=== PATIENT | male | born 1950 | race Caucasian/White ===

== ENCOUNTER 2019-10-28 05:34 | Inpatient (IN) ==
--- NOTE | 2019-10-08 15:58 | PAT Medication Instructions ---
Medication Instructions Date of Service October 08, 2019 Home Medications albuterol sulfate 90 mcg/actuation aerosol inhaler 1 puffs INH UD PRN allopurinol 300 mg tablet 300 mg PO QAM artificial tears(andetqx-crwonbug-rrlodut) 0.1 %-0.3 %-0.2 % eye drops 1 drops OP UD PRN losartan 50 mg-hydrochlorothiazide 12.5 mg tablet 1 tab PO QAM naproxen sodium 220 mg capsule 220 mg PO UD PRN colchicine 0.6 mg tablet 0.6 mg PO DAILY PRN loratadine 10 mg tablet 10 mg PO DAILY PRN acetaminophen [Tylenol Extra Strength] 1,000 mg PO Q6H PRN azithromycin 250 mg PO DAILY fluticasone propion-salmeterol [Wixela Inhub] 1 puff INHALATION BID linagliptin [Tradjenta] 5 mg PO QPM Continue as directed azithromycin 250 mg PO DAILY ASK your surgeon for instructions naproxen sodium 220 mg capsule 220 mg PO UD PRN DO NOT take the morning of surgery losartan 50 mg-hydrochlorothiazide 12.5 mg tablet 1 tab PO QAM colchicine 0.6 mg tablet 0.6 mg PO DAILY PRN loratadine 10 mg tablet 10 mg PO DAILY PRN Take morning of surgery With a small sip of water, OTHERWISE NOTHING TO EAT OR DRINK AFTER MIDNIGHT: albuterol sulfate 90 mcg/actuation aerosol inhaler 1 puffs INH UD PRN (if needed) allopurinol 300 mg tablet 300 mg PO QAM artificial tears(lbenmdm-mtiioxcv-nuzdeka) 0.1 %-0.3 %-0.2 % eye drops 1 drops OP UD PRN (if needed) acetaminophen [Tylenol Extra Strength] 1,000 mg PO Q6H PRN (if needed, may be taken up to four hours before surgery) fluticasone propion-salmeterol [Wixela Inhub] 1 puff INHALATION BID Take evening before surgery albuterol sulfate 90 mcg/actuation aerosol inhaler 1 puffs INH UD PRN (if needed) artificial tears(xxysdux-sncugsgs-qbdkbsh) 0.1 %-0.3 %-0.2 % eye drops 1 drops OP UD PRN (if needed) colchicine 0.6 mg tablet 0.6 mg PO DAILY PRN (if needed) loratadine 10 mg tablet 10 mg PO DAILY PRN (if needed) acetaminophen [Tylenol Extra Strength] 1,000 mg PO Q6H PRN (if needed) fluticasone propion-salmeterol [Wixela Inhub] 1 puff INHALATION BID linagliptin [Tradjenta] 5 mg PO QPM Other Notes If you have any questions please call us at [phone] or [phone] or [phone] or [phone]
--- NOTE | 2019-10-09 10:03 | Anesthesiology Consultation ---
Date of Service October 09, 2019 Assessment & Plan (1) Encounter for pre-operative examination: PATIENT HAS CURRENT DENTAL INFECTION, ON AZITHROMYCIN. ROOT CANAL SCHEDULED FOR OCT 16, 2019 -- SURGEON'S OFFICE MADE AWARE. CHECK BSG AM DOS Chart Review Chart Review: Acceptable Risk for Surgery and Patient seen in Pre Admission Testing Teaching & Discussion Instructed NPO after midnight before surgery, except medications with 15 cc of water. Medication instructions provided according to the PAT guidelines. History Surgery Operation Date: 10/28/19 07:30 Proposed Procedures p Robotic Laparoscopic Radical Retropubic Prostatectomy, Possible Open, Possible Pelvic Lymph Node Dissection, Possible Suprapubic Tube Placement - Elijah Hernandez MD Height/Weight Height: 5 ft 10 in Weight: 89.5 kg Allergies Allergy/AdvReac Type Severity Reaction Status Date / Time SEASONAL ALLERGIES Allergy Unknown & RAGWEED Uncoded 10/07/19 15:18 - HAYFEVER Medications Home Medications Medication Instructions Recorded Confirmed Last Taken albuterol sulfate 90 mcg/actuation 1 puffs INH UD PRN 06/05/19 10/07/19 Unknown aerosol inhaler allopurinol 300 mg tablet 300 mg PO QAM 06/05/19 10/07/19 10/07/19 artificial 1 drops OP UD PRN 06/05/19 10/07/19 Unknown tears(yuznggv-pawuyiob-etjqnch) 0.1 %-0.3 %-0.2 % eye drops losartan 50 mg-hydrochlorothiazide 1 tab PO QAM 06/05/19 10/07/19 10/07/19 12.5 mg tablet naproxen sodium 220 mg capsule 220 mg PO UD PRN 06/05/19 10/07/19 Unknown colchicine 0.6 mg tablet 0.6 mg PO DAILY PRN 10/01/19 10/07/19 Unknown loratadine 10 mg tablet 10 mg PO DAILY PRN 10/01/19 10/07/19 Unknown acetaminophen [Tylenol Extra 1,000 mg PO Q6H PRN 10/07/19 10/07/19 Unknown Strength] azithromycin 250 mg PO DAILY 10/07/19 10/07/19 Unknown fluticasone propion-salmeterol 1 puff INHALATION BID 10/07/19 10/07/19 Unknown [Wixela Inhub] linagliptin [Tradjenta] 5 mg PO QPM 10/07/19 10/07/19 Unknown Past Medical History Medical History (Updated 10/09/19 @ 16:43 by Sam Olivas) Asthma Wixela daily, using albuterol once weekly Blind left eye CKD (chronic kidney disease), stage III Diabetes Gout MOST RECENT FLARE UP : 1.5 WK AGO - RESOLVED Hayfever SEASONAL ALLERGIES, RAGWEED Hypertension Prostate cancer Solitary kidney PT UNSURE WHICH SIDE REMAINS Tooth infection CURRENT ABX TX FOR, ROOT CANAL SCHEDULED FOR OCT 16, 2019 -- SURGEON'S OFFICE MADE AWARE. Exercise / Class Metabolic Activity II 4-5 Yardwork/Stairs/Walk up hill (DENIES CP OR SOB WITH 1 FOS) Past Family History Family History Mother , age 80s alzheimers No problems noted. Father , age early 80s CVA No problems noted. Brother , age 65 renal disease No problems noted. Brother No problems noted. Brother Skin cancer Daughter No problems noted. Daughter No problems noted. Son No problems noted. 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 PT REPORTS BENIGN Past Anesthesia History No Hx of Anesthesia Complications and No Family Hx of Anesthesia Complications History of PONV No Hx of PONV and No Hx of Motion Sickness Social History Smoking Status: Never smoker Do You Dip or Chew Tobacco: No Hx Alcohol Use: Yes (social) Alcohol type: wine and hard liquor alcohol intake frequency: a few times a week Hx Substance Use: No substance use type: does not use Review of Systems Pt denies any recent chest pain, shortness of breath, palpitations, cough, fever or URI. +TOOTH PAIN/DENTAL INFECTION, TO HAVE ROOT CANAL PRIOR TO SURGERY. PT ADVISED TO MAKE SURGEON AWARE. Physical Exam Vital Signs BP: 155/90 (pt has significant dental pain; BP was also elevated at PCP visit 10/03; PCP monitoring) P: 73bpm SPO2: 97% RA T: 97.5 F R: 18 ENMT Mouth: + dental restorations (few crowns and implants -- to have root canal before surgery); no loose teeth Thyromental Distance: > or= 3.5 Finger Breadths (4) Mallampati Class: II Neck + short neck; neck extension not limited Respiratory normal respiratory effort Auscultation: lungs clear to auscultation bilaterally Cardiovascular Rate/Rhythm: regular rate and regular rhythm Heart Sounds: no murmur Vessels: no carotid bruit Testing Laboratory Results Urine Color Yellow 10/09/19 Unknown Urine Appearance Clear (Clear) 10/09/19 Unknown Urine pH 6.0 (4.5-7.5) 10/09/19 Unknown Ur Specific [place] 1.008 (1.000-1.030) 10/09/19 Unknown Urine Protein 1+ (Negative) H 10/09/19 Unknown Urine Glucose (UA) Negative (Negative) 10/09/19 Unknown Urine Ketones Negative (Negative) 10/09/19 Unknown Urine Nitrite Negative (Negative) 10/09/19 Unknown Ur Leukocyte Esterase Negative (Negative) 10/09/19 Unknown Urine WBC (Auto) 0 /hpf (0-5) 10/09/19 Unknown Urine RBC (Auto) 0-4 /hpf (0-4) 10/09/19 Unknown U Hyaline Cast (Auto) 1-5 /lpf (0-5) 10/09/19 Unknown U Epithel Cells (Auto) 0-5 /lpf (0-5) 10/09/19 Unknown Urine Bacteria (Auto) Negative (Negative) 10/09/19 Unknown Blood Type O Positive 10/09/19 10:10 Antibody Screen NEGATIVE 10/09/19 10:10 09/29/19 WBC: 6.63 H/H: 15.3/44.6 PLATELETS: 168 SODIUM: 140 POTASSIUM: 3.9 CHLORIDE: 102 CO2: 30 BUN: 21.3 CREATININE: 1.72 GLUCOSE: 164 A1C: 6.8% Electrocardiogram Date: 10/03/19 Findings: + NSR @ (72bpm with first-degree AV block.) Rightward axis. Abnormal QRST angle, consider primary T wave abnormality. No significant change from prior. Chest X-Ray Date: 10/09/19 IMPRESSION: 1. Emphysema with linear areas of basilar atelectasis/scarring 2. 9 mm right midlung zone nodule, likely representing a nipple shadow. This could be confirmed with nipple markers as deemed clinically appropriate. *Patient also had Chest CT 10/09/19 confirming presence of pulmonary nodules. Forwarded to PCP for follow-up. Other Testing 10/09/[address] IMPRESSION: 1. Multiple solid pulmonary nodules measuring up to 9 mm. Follow-up per Fleischner Society 2017 recommendations below. 2. Findings suggest emphysema in the setting of smoking related lung injury.
--- NOTE | 2019-10-09 10:43 | XRay Report ---
XR chest Pre-admission PA/Lat CLINICAL HISTORY: Preoperative chest COMPARISON STUDY: No previous studies for comparison. FINDINGS: The heart is normal in size. The chest has an emphysematous configuration. There are linear basilar opacities, likely representing scar/atelectatic change. There are basilar lung cysts. There is no failure. There is no lobar consolidation.[There is a 9 mm right midlung zone nodule, statistica lly representing a nipple shadow. There is ar 15 mm left upper lung zone opacity which appears calcif ied and likely represents a granuloma or area of rib sclerosis IMPRESSION: 1. Emphysema with linear areas of basilar atelectasis/scarring 2. 9 mm right midlung zone nodule, likely representing a nipple shadow. This could be confirmed with nipple markers as deemed clinically appropriate. ACT 112: Negative or not required by law. Electronically signed by: oTmi Bellamy M.D. 10/09/2019 10:41 AM
[2019-10-09 12:20] LABS: Appearance Urine Clear (Clear); Bacteria Urine Automated Negative (Negative); Bilirubin Urine Negative (Negative); Blood Urine Trace (Negative); Color Urine Yellow; Epithelial Cell Urine Auto 0-5 /lpf (0-5); Glucose Urine UA Negative (Negative); Ketones Urine Negative (Negative); Leukocyte Esterase Urine Negative (Negative); Nitrite Urine Negative (Negative); Protein Urine 1+ (Negative); RBC Urine Automated 0-4 /hpf (0-4); Specific Gravity Urine 1.008 (1.000-1.030); Urobilinogen Urine Negative (Negative); WBC Urine Automated 0 /hpf (0-5)
[2019-10-28] MEDS ORDERED: CEFAZOLIN 3000MG 72.5 ML IV SCH (06:00)
[2019-10-28] MEDS ORDERED: HEPARIN SOD 5,000 UNIT/0.5 ML VIAL SQ SCH (06:00)
[2019-10-28] MEDS ORDERED: LACTATED RINGER'S 1,000 ML IV SCH (06:00)
[2019-10-28] MEDS ORDERED: BUPIVACAINE 0.5 % 5 MG/1 ML MPF 30ML VIAL ONE (07:03)
[2019-10-28] MEDS ORDERED: BELLADONNA/OPIUM SUPP 60 MG SUPP PR ONE (07:04)
[2019-10-28] MEDS ORDERED: fentaNYL citrate 100 MCG/2 ML VIAL ONE (07:04)
[2019-10-28] MEDS ORDERED: PROPOFOL IV EMULSION 10 MG/ML 20 ML VIAL IV ONE (07:04)
[2019-10-28] MEDS ORDERED: GLYCOPYRROLATE 0.2 MG/ML VIAL ONE (07:04)
[2019-10-28] MEDS ORDERED: DEXAMETHASONE SOD INJ 4 MG/ML VIAL ONE (07:04)
[2019-10-28] MEDS ORDERED: MIDAZOLAM HCL 1 MG/ML 2ML VIAL ONE (07:04)
[2019-10-28] MEDS ORDERED: NEOSTIGMINE METHYLSULFATE 5 MG/5 ML SYR ONE (07:04)
[2019-10-28] MEDS ORDERED: ONDANSETRON INJ 2 MG/ML 2 ML VIAL ONE (07:04)
[2019-10-28] MEDS ORDERED: LIDOCAINE HCL 2% 2 ML VIAL/AMP(20MG/ML) INFIL ONE (07:04)
[2019-10-28] MEDS ORDERED: PHENYLEPHRINE 100MCG/ML 5ML SYR IV PRN (07:14)
[2019-10-28] MEDS ORDERED: fentaNYL citrate 100 MCG/2 ML VIAL IV PRN (07:14)
[2019-10-28] MEDS ORDERED: ATROPINE SULFATE 0.1 MG/ML 10ML SYR IV PRN (07:14)
[2019-10-28] MEDS ORDERED: MEPERIDINE HCL 25 MG/ML CARP IV PRN (07:14)
[2019-10-28] MEDS ORDERED: HYDROmorphone INJ 1 MG/ML SYRINGE IV PRN (07:14)
[2019-10-28] MEDS ORDERED: LABETALOL HCL IV 5 MG/ML 20ML IV PRN (07:14)
[2019-10-28] MEDS ORDERED: ePHEDrine sulfate 50 MG/ML AMP IV PRN (07:14)
[2019-10-28] MEDS ORDERED: ONDANSETRON INJ 2 MG/ML 2 ML VIAL IV PRN ×2 (07:14→14:27)
--- NOTE | 2019-10-28 07:26 | History & Physical Bridge Note ---
Date of Service October 28, 2019 History & Physical Bridge Note I have examined the patient, reviewed the History & Physical and in the interval since the performance of the History & Physical I have noted the following changes of clinical significance: no changes noted
[2019-10-28] MEDS ORDERED: HYDROmorphone INJ 2 MG/ML SYR/VIAL ONE (08:22)
[2019-10-28] MEDS ORDERED: BELLADONNA/OPIUM SUPP 60 MG SUPP PR PRN (09:33)
[2019-10-28] MEDS ORDERED: SURGICEL ABSORB HEMOSTAT 2IN X 14IN TOP ONE (09:35)
[2019-10-28] MEDS ORDERED: ACETAMINOPHEN 1000 MG/100 ML IV IV ONE (09:44)
[2019-10-28] MEDS ORDERED: METOPROLOL TARTRATE 1 MG/ML VIAL IV ONE (09:46)
[2019-10-28] MEDS ORDERED: FLOSEAL HEMOSTATIC MATRIX 10ML TOP ONE (10:34)
--- NOTE | 2019-10-28 11:55 | Operative Report ---
PG Post Operative Report Pre & Post Diagnosis Operation Date: 10/28/19 07:30 Pre-Op Diagnosis: Prostate Cancer Post-Op Diagnosis: Prostate Cancer I identified the patient and participated in the time-out.: Yes Procedure Operation Date: 10/28/19 07:30 Actual Procedures p Robotic-Assisted Laparoscopic Prostatectomy and Bilateral Pelvic Lymph Node Dissection(Not Applicable) - Elijah Hernandez MD Surgeon Christiano Hernandez MD Commercial Intelligence Manager Kierra Damian Estimated Blood Loss 150 Findings Consistent with Post-Op Diagnosis Specimens 1. Periprostatic fat 2. Right pelvic lymph nodes 3. Left pelvic lymph nodes 4. Prostate seminal vesicles Description of Procedure The patient was identified in the preoperative holding area, appropriate informed consents were reviewed and completed, and he was transported to the operating suite. Subcutaneous heparin was administered in the pre-operative holding area. Upon arrival in the operating suite, he received appropriate antibiotics and general anesthesia. He was positioned in dorsal lithotomy, a B&O suppository was inserted after digital rectal exam, and he was prepped and draped in standard fashion. A Brandon catheter was inserted in the sterile field. A Veress needle was passed per umbilicus with uniform insufflation of the abdomen to 15mmHg. He was placed in steep Trendelenburg position. A periumbilical incision was then made to accommodate a 12mm Visiport with 10mm 0degree laparoscope. Inspection of the abdomen was carried out, and there was no evidence of traumatic entry or injury secondary to the Veress needle. After confirming a clear anterior abdominal wall, ports were subsequently placed in standard robotic prostatectomy fashion without incident. To begin the robotic portion of the case, the left lateral aspect of the sigmoid was mobilized off of the left pelvic side wall to allow the pouch of Pantera to be appropriately visualized. I then made an incision in the pouch of Pantera, overlying the seminal vesicles. Both SVs as well as the ampullae of the vasa were entirely dissected, with the vasa transected 3cm from the prostate. The medial umbilical ligaments were then controlled with bipolar electrocautery just inferior to the umbilicus. Following cauterization, they were divided utilizing monopolar cautery. A peritoneal incision was carried from this location to the medial aspect of the internal inguinal rings bilaterally with care to avoid opening through the ring. This incision was concluded when the vas deferens was reached. Dissection of the bladder and prostate off of the posterior aspect of the pubic arch was completed allowing full visualization of the prostate. The fat overlying the prostate was removed en bloc and passed off the table as a specimen labeled "periprostatic fat". The endopelvic fascia was cleared during this portion of the procedure, and subsequently opened - first on the right and then the left. The incision through the endopelvic fascia began near the prostate-bladder junction and was carried to the apex with extreme care to preserve all lateral levator musculature as well as the periurethral musculature and sphincter complex. The puboprostatic ligaments were thinned slightly bilaterally before placing a 0-Vicryl figure of 8 stitch around the DVC. The lymph node dissection was then conducted. External iliac vessels were identified on the pelvic side wall. The packet of fat and lymphatic tissue that resides just under the iliac vein was elevated and off of the vein with a split and roll technique. The packet was dissected laterally to the circumflex vein and distally to the obturator nerve which was preserved. The proximal aspect of the packet was carried towards the bifurcation of the iliac vessels. A combination of monopolar and bipolar cautery were used to assist with control. Clips were placed at the proximal and distal aspects of the pack et prior to transection. After completing the dissection on both sides, the packets were collected and passed off of the table as specimens labeled "pelvic lymph nodes". My attention then returned to the prostate, with identification of the bladder neck aided by gentle traction on the Brandon catheter and lateral to medial pressure at the presumed level of the bladder neck with the robotic instruments. An anterior cystotomy was made, the Brandon balloon deflated and the catheter guided through the incision to allow anterior retraction. I attempted to preserve maximal bladder neck musculature as I circumferentially dissected around the bladder neck. After incision through the posterior aspect of the mucosa, the dissection was carried through detrusor muscle until the bilateral ampullae of the vasa were identified. The previously dissected vasa and SVs were brought through the incision and used to elevated the prostate anteriorly. A posterior plane behind the prostate was then developed - splitting Denonvilliers's fascia. This dissection was carried as far as possible towards the apex as well as far as possible laterally. An incision in the lateral prostatic fascia was then made bilaterally to facilitate control of the vascular pedicles. The pedicles were each controlled with vessel sealer device. The neurovascular bundles were identified with an aggressive nerve sparing on the left and a much more guarded approach on the right. The apical attachments of the prostate were remaining at that stage. The DVC was divided with bipolar electrocautery. Laura-prostatic tissue incised with sharp dissection and monopolar cautery. Maximal urethral length was preserved before dividing the urethra sharply. The prostate was entirely freed at that point, and collected in an EndoCatch bag before being moved out of the field of vision. Hemostasis was confirmed and anastomosis of the bladder and urethra was completed utilizing a double armed V- Lock stitch. A new Brandon catheter was inserted and the anastomosis tested with irrigation. There was no evidence of leak. FloSeal coagulant was placed around the anastomosis. A Lurdes style stitch was used to jose alejandro the peritoneum against the area of prior lymph node dissection. The robot was undocked, the specimen extracted through expansion of the laura- umbilical camera port. The fascia was closed with a series of 0-PDS figure of 8 stitches. The right customer marketing assistant port was closed in two layers - with a figure of 8 0-Vicryl to reapproximate the fascia followed by 4-0 Monocryl to close the skin. Monocryl was used to close all other skin incisions. All wounds were dressed with Dermabond. Kierra Damian assisted throughout the case from incision to closure. The case was concluded and the patient taken to the PACU in stable condition. I attest to the content of the Intraoperative Record and any orders documented therein. Any exceptions are noted below.
[2019-10-28 12:08] LABS: Basophils # (auto) 0.03 K/uL (0-0.2); Basophils % (auto) 0.2 %; Eosinophils # (auto) 0.06 K/uL (0-0.5); Eosinophils % (auto) 0.4 %; Hematocrit (blood only) 44.6 % (42-52); Hemoglobin 16.4 g/dL (14.0-18.0); Immature Granulocytes # (auto) 0.04 K/uL (0.00-0.02); Immature Granulocytes % (auto) 0.3 %; Lymphocytes # (auto) 1.47 K/uL (1.2-3.4); Lymphocytes % (auto) 10.5 %; Mean Corpuscular Hemoglobin 32.6 pg (25-34); Mean Corpuscular Volume 88.7 fL (80-100); Mean Platelet Volume 10.7 fL (7.4-10.4); Monocytes # (auto) 0.19 K/uL (0.11-0.59); Monocytes % (auto) 1.4 %; Neutrophils # (auto) 12.23 K/uL (1.4-6.5); Neutrophils % (auto) 87.2 %; Platelet Count 242 K/uL (130-400); RDW Coefficient of Variation 13.9 % (11.5-14.5); RDW Standard Deviation 44.8 fL (36.4-46.3); Red Blood Count 5.03 M/uL (4.7-6.1); White Blood Count 14.02 K/uL (4.8-10.8)
[2019-10-28 12:23] LABS: BUN Creatinine Ratio 10.8 (10-20); Calcium 8.7 mg/dl (8.5-10.1); Est GFR (Non-African American) 34.5; Mean Corpuscular Hgb Conc 36.8 g/dL (32-36); Potassium 3.9 mmol/L (3.5-5.1)
[2019-10-28] MEDS ORDERED: INSULIN ASPART PER UNIT SC STA ×3 (12:27→13:30)
[2019-10-28] MEDS ORDERED: INSULIN ASPART PER UNIT ONE (12:28)
[2019-10-28] MEDS ORDERED: INSULIN ASPART PER SC STA (13:25)
--- NOTE | 2019-10-28 14:11 | Anesthesiology Progress Note ---
Date of Service October 28, 2019 Anesthesia Post Procedure Vital Signs Vital Signs: Temp Pulse Pulse Resp BP Pulse Ox 10/28/19 14:05 36.4 C L 72 14 101/61 93 10/28/19 13:50 90 12 79/54 L 94 10/28/19 13:40 90 13 83/59 L 92 10/28/19 13:30 94 H 12 101/73 94 10/28/19 13:20 90 12 96/67 L 94 10/28/19 13:10 36.3 C L 73 13 132/89 92 10/28/19 13:00 83 12 115/72 93 10/28/19 12:50 62 13 121/74 92 10/28/19 12:40 63 11 L 119/80 91 10/28/19 12:30 75 15 129/81 90 10/28/19 12:20 36.4 C L 59 L 12 138/90 91 10/28/19 12:10 60 13 128/80 96 10/28/19 12:00 66 12 107/70 91 10/28/19 11:50 63 14 96/70 L 92 10/28/19 11:40 57 L 11 L 105/71 88 L 10/28/19 11:33 36.0 C L 81 10 L 108/80 100 10/28/19 06:10 36.6 C 78 18 142/96 H 95 Pain Intensity Abdomen: Pain Intensity: 2 Transfer of Care Handoff Completed per policy Notes Mental Status: alert / awake / arousable Patient Amnestic to Procedure: Yes Nausea / Vomiting: adequately controlled Pain: adequately controlled Airway Patency, RR, SpO2: stable & adequate BP & HR: stable & adequate Hydration State: stable & adequate Anesthetic Complications: no major complications apparent and Pt Satisfied with anesthetic care Notes: The patient is awake and comfortable. His vital signs are stable. The patient's BSG was elevated in the PACU. He has received a total of [address] Hernandez was made aware. The patient will be placed on the pharmacy glycemic control protocol on the floor.
[2019-10-28] MEDS ORDERED: MoRPHine SULFATE 10 MG/ML CARP/VIAL IV PRN (14:27)
[2019-10-28] MEDS ORDERED: MoRPHine SULFATE 4 MG/ML 1 ML CARP\\VIAL IV PRN (14:27)
[2019-10-28] MEDS ORDERED: OXYCODONE HCL IR 5 MG TAB (IMMEDIATE RELEASE) PO PRN ×2 (14:27)
[2019-10-28] MEDS ORDERED: ARTIFICIAL TEARS OP PRN (14:34)
[2019-10-28] MEDS: LACTATED RINGER'S 1,000 ML IV SCH (14:40)
[2019-10-28] MEDS ORDERED: PHARMACY GLYCEMIC MGMT CONSULT PRN (14:44)
[2019-10-28] MEDS ORDERED: GLUCAGON FOR INJ 1 MG VIAL IM PRN (14:45)
[2019-10-28] MEDS ORDERED: DEXTROSE 50% 50 ML SYRINGE IV PRN (14:45)
[2019-10-28] MEDS ORDERED: CARBOHYDRATES FOR HYPOGLYCEMIA PO PRN (14:45)
[2019-10-28] MEDS ORDERED: GLUCOSE 40% GEL 15 GM TUBE PO PRN (14:45)
[2019-10-28] MEDS ORDERED: GLUCOSE 10 TABS/TUBE PO PRN (14:45)
--- NOTE | 2019-10-28 15:23 | Pharmacy Report ---
Glycemic Control Consultation - Date of Service October 28, 2019 - Scope Scope: Glycemic Pharmacist consulted by Kierra Galicia on [date] for glycemic control and to write orders per [facility] inpatient glycemic control protocol - Objective Weight: 88.088 kg Accuchecks BSG (last 24hrs): 10/28/19 10/28/19 10/28/19 05:55 11:47 11:48 Glucose POC Glucose 170 H 248 H 220 H 10/28/19 10/28/19 10/28/19 11:49 12:58 13:19 Glucose 236 H POC Glucose 264 H 101 H 10/28/19 10/28/19 10/28/19 13:23 13:47 14:50 Glucose POC Glucose 284 H 257 H 237 H Laboratory Data (last 24hrs): 10/28/19 11:49 Potassium 3.9 Carbon Dioxide 27 Anion Gap 6.0 Creatinine 1.92 H Est Cr Clr Drug Dosing 40.0 - Recent Pertinent Medications Outpatient Anti-diabetic Regimen: * tradjenta 5 mg po Qam * A1c = 6.8 % 09/29/19 Risk Factors for Insulin Resistance: * Steroids: DXM iv 8 mg * Recent Surgery: POD 0 * Diet: clears - Assessment & Plan Assessment & Plan: ASSESSMENT: * 69 year old male now s/p prostectomy. Type 2 diabetic managed only on oral agent at home * Pharmacy consulted for glycemic management postop. Patient did receive steroids postop therefore anticipate steroid induced hyperglycemia * Will utilize NPH to help cover steroids and novolog insulin - patient receiving multiple doses of novolog in PACU / will add scale for NPH with dinner PLAN FOR INPATIENT GLYCEMIC CONTROL: * Basal insulin * NPH 15-20 units with dinner based upon BSG * Bolus insulin * NovoLog per scale ACHS or Q6hrs while NPO * Goal Range: Low 110 mg/dL - High 140 mg/dL * Correction Factor: 25 mg/dL/unit * Nutritional / Prandial insulin per carb ratio of 1 unit per 7 grams CHO consumed * Please note that the plan above was derived based on current level of insulin resistance and hospital stress. These recommendations are appropriate for inpatient admission only. Plan of care upon discharge will need to be reassessed to avoid potential outpatient hypo/hyperglycemia. Thank you.
[2019-10-28] MEDS: CEFAZOLIN 2000MG 2,000 MG/15 ML SYR IV SCH ×2 (16:16→23:24)
[2019-10-28] MEDS ORDERED: SODIUM CHLORIDE 0.9% 1000ML 1,000 ML IV ONE (16:47)
[2019-10-28] MEDS ORDERED: NovoLIN-N (NPH) PER UNIT CHARGE SQ SCH (17:00)
[2019-10-28] MEDS: ACETAMINOPHEN 1,000 MG/100 ML VIAL IV SCH (18:20)
[2019-10-28] MEDS: INSULIN ASPART 100 UNITS/ML 3 ML PEN SC SCH ×3 (18:20→23:24)
[2019-10-28] MEDS ORDERED: COUGH DROP (SUGAR FREE) LOZ 24 LOZ/1 BOX BUCCAL PRN (20:23)
[2019-10-28] MEDS: HEPARIN SOD 5,000 UNIT/0.5 ML VIAL SQ SCH (20:43)
[2019-10-29] MEDS: LACTATED RINGER'S 1,000 ML IV SCH (00:29)
[2019-10-29] MEDS: ACETAMINOPHEN 1,000 MG/100 ML VIAL IV SCH ×3 (01:44→18:42)
[2019-10-29] MEDS: INSULIN ASPART 100 UNITS/ML 3 ML PEN SC SCH ×5 (04:00→21:32)
[2019-10-29 06:06] LABS: Basophils # (auto) 0.01 K/uL (0-0.2); Basophils % (auto) 0.1 %; Eosinophils # (auto) 0.01 K/uL (0-0.5); Eosinophils % (auto) 0.1 %; Hematocrit (blood only) 35.6 % (42-52); Hemoglobin 12.7 g/dL (14.0-18.0); Immature Granulocytes # (auto) 0.03 K/uL (0.00-0.02); Immature Granulocytes % (auto) 0.2 %; Lymphocytes # (auto) 1.27 K/uL (1.2-3.4); Lymphocytes % (auto) 9.7 %; Mean Corpuscular Hemoglobin 32.2 pg (25-34); Mean Corpuscular Hgb Conc 35.7 g/dL (32-36); Mean Corpuscular Volume 90.4 fL (80-100); Mean Platelet Volume 10.7 fL (7.4-10.4); Monocytes # (auto) 0.64 K/uL (0.11-0.59); Monocytes % (auto) 4.9 %; Platelet Count 149 K/uL (130-400); RDW Standard Deviation 46.6 fL (36.4-46.3); Red Blood Count 3.94 M/uL (4.7-6.1); White Blood Count 13.06 K/uL (4.8-10.8)
[2019-10-29 06:21] LABS: Calcium 7.8 mg/dl (8.5-10.1); Creatinine Clr Calc Pharmacy 36.8 ml/min; Est GFR (African American) 36.1; Est GFR (Non-African American) 31.1; Potassium 3.5 mmol/L (3.5-5.1)
--- NOTE | 2019-10-29 08:06 | Urology Progress Note ---
Date of Service October 29, 2019 Assessment & Plan (1) Prostate ca: doing well Cr up - will monitor BG up - switch LR to 1/2NS (modest UoP overnight) ambulate wean O2 advance diet replace K+ (20meq) likely d/c home tomorrow if he continues to progress Subjective low temp, low BP, and low O2 after surgery - high BG subjectively felt fine throughout still reports he feels great ambulating NC O2 in place Physical Exam Physical Exam: incisions appropriate urine clear Results & Data Vital Signs (Past 12 Hours) Vital Signs Temp Pulse Resp BP Pulse Ox 10/29/19 06:45 36.8 C 92 H 16 100/57 L 92 10/29/19 04:00 36.8 C 1 L 18 104/61 94 10/28/19 23:31 36.9 C 90 16 113/64 92 10/28/19 21:50 36.8 C 91 H 18 108/63 92 PG Care Time/CCT Total # of Minutes Spent Total Time Spent with Patient: Total time spent is greater than 50% in coordination of care (as documented) at patient's floor/unit and/or counseling patient: Coding Level of Care Code None Diagnoses Prostate ca C61
[2019-10-29] MEDS: SODIUM CHLORIDE 0.45 % 1,000 ML IV SCH ×2 (08:12→20:29)
[2019-10-29] MEDS: FLUTICASONE/VILANTEROL 100/25MCG 14 PUFFS/INHALER INH SCH (08:13)
[2019-10-29] MEDS: LOSARTAN/HCTZ 50/12.5MG TAB PO SCH (08:13)
[2019-10-29] MEDS: allopurinoL 300 MG TAB PO SCH (08:13)
[2019-10-29] MEDS: HEPARIN SOD 5,000 UNIT/0.5 ML VIAL SQ SCH ×2 (08:15→21:31)
[2019-10-29] MEDS ORDERED: POTASSIUM CHLORIDE 20 MEQ TABCR PO STA (08:32)
[2019-10-29] MEDS: ALBUTEROL HFA 8 GM INHALER INH PRN ×2 (09:24→12:57)
[2019-10-30] MEDS: ACETAMINOPHEN 1,000 MG/100 ML VIAL IV SCH ×2 (01:55→09:33)
[2019-10-30] MEDS: ALBUTEROL HFA 8 GM INHALER INH PRN (01:58)
[2019-10-30 06:17] LABS: Basophils # (auto) 0.01 K/uL (0-0.2); Basophils % (auto) 0.1 %; Eosinophils # (auto) 0.03 K/uL (0-0.5); Eosinophils % (auto) 0.3 %; Hematocrit (blood only) 32.9 % (42-52); Hemoglobin 11.8 g/dL (14.0-18.0); Immature Granulocytes # (auto) 0.02 K/uL (0.00-0.02); Immature Granulocytes % (auto) 0.2 %; Lymphocytes # (auto) 1.07 K/uL (1.2-3.4); Lymphocytes % (auto) 11.2 %; Mean Corpuscular Hemoglobin 32.1 pg (25-34); Mean Corpuscular Hgb Conc 35.9 g/dL (32-36); Mean Corpuscular Volume 89.4 fL (80-100); Mean Platelet Volume 10.8 fL (7.4-10.4); Monocytes % (auto) 6.3 %; Neutrophils # (auto) 7.82 K/uL (1.4-6.5); Neutrophils % (auto) 81.9 %; Platelet Count 135 K/uL (130-400); RDW Coefficient of Variation 14.1 % (11.5-14.5); RDW Standard Deviation 46.8 fL (36.4-46.3); Red Blood Count 3.68 M/uL (4.7-6.1); White Blood Count 9.55 K/uL (4.8-10.8)
[2019-10-30 06:49] LABS: BUN Creatinine Ratio 12.2 (10-20); Calcium 8.3 mg/dl (8.5-10.1); Creatinine Clr Calc Pharmacy 46.3 ml/min; Est GFR (African American) 47.7; Est GFR (Non-African American) 41.1; Potassium 3.6 mmol/L (3.5-5.1)
--- NOTE | 2019-10-30 08:21 | Urology Progress Note ---
Date of Service October 30, 2019 Assessment & Plan (1) Prostate ca: POD#2 s/p RALP progressing appropriately ambulating pain controlled passing flatus labs improved (Cr 1.6) likely d/c home after lunch Subjective continues to progress well some abdominal discomfort yesterday - better after flatus Physical Exam Physical Exam: incisions appropriate urine clear Results & Data Vital Signs (Past 12 Hours) Vital Signs Temp Pulse Resp BP Pulse Ox Pulse Ox 10/30/19 07:40 37 C 87 18 128/71 94 10/29/19 23:31 36.9 C 88 16 122/66 91 10/29/19 23:30 91 10/29/19 20:56 36.8 C 97 H 18 127/75 92 PG Care Time/CCT Total # of Minutes Spent Total Time Spent with Patient: Total time spent is greater than 50% in coordination of care (as documented) at patient's floor/unit and/or counseling patient: Coding Level of Care Code None Diagnoses Prostate ca C61
[2019-10-30] MEDS: SODIUM CHLORIDE 0.45 % 1,000 ML IV SCH (08:51)
[2019-10-30] MEDS: LOSARTAN/HCTZ 50/12.5MG TAB PO SCH (09:31)
[2019-10-30] MEDS: allopurinoL 300 MG TAB PO SCH (09:31)
[2019-10-30] MEDS: FLUTICASONE/VILANTEROL 100/25MCG 14 PUFFS/INHALER INH SCH (09:32)
[2019-10-30] MEDS: INSULIN ASPART 100 UNITS/ML 3 ML PEN SC SCH ×2 (09:38→13:27)
[2019-10-30] MEDS: HEPARIN SOD 5,000 UNIT/0.5 ML VIAL SQ SCH (09:40)
== END 2019-10-30 15:44 | disposition home or self-care (01) | DRG 708 ==
LOC: ASU 05:34 → 3W 11:44

== ENCOUNTER 2024-02-13 12:14 | Inpatient (IN) ==
--- NOTE | 2024-02-13 13:27 | CT Scan Report ---
ABDOMEN AND PELVIS CT WITHOUT CONTRAST CT DOSE: 1018.18 mGy.cm HISTORY: Fever. Hematuria. TECHNIQUE: Multiaxial CT images of the abdomen and pelvis were performed without contrast. A dose lo wering technique was utilized adhering to the principles of ALARA. COMPARISON STUDY: Abdomen and pelvis CT 09/01/2019. FINDINGS: There is a partially visualized focal irregular density within the right lower lobe abuttin g the major fissure on image 4. This is increased in size and currently measures 18 mm. This previous ly measured 9 mm. There is a stable 4 mm nodule within the left lower lobe on image 15. Additional bi basilar linear densities favor subsegmental atelectasis are scarring. There are trace bilateral pleur al effusions. Small pericardial effusion. No pneumoperitoneum. No pneumatosis. No acute fractures. Th ere is a tiny hiatus hernia. There are 2 subcentimeter hypodense lesions within the liver. These are technically too small to characterize but statistically represent cysts. The spleen is mildly enlarge d measuring 14 cm in length. This is unchanged. There is a 19 mm hypodense lesion within the spleen p osteriorly. This is also indeterminate but favors a benign lesion. The unenhanced gallbladder, pancre as, and adrenal glands unremarkable. The right kidney is absent. There is compensatory hypertrophy of the left kidney which contains multiple hypodense lesions. These likely represent cysts. Dominant cy st within the lower pole contains a punctate focus of calcification and measures 6.8 cm. These suspec bruce left renal cysts are similar to the prior study. No left renal or ureteral stones. No hydronephro sis. There is mild left perinephric edema/fat stranding. This has slightly progressed. There is a lef t retroaortic renal vein. Calcified plaque within the normal caliber abdominal aorta. No retroperiton eal or pelvic lymphadenopathy. No pelvic free fluid. There are small posterior bladder diverticula. T here is moderate bladder wall thickening with adjacent fat stranding. The prostate gland appears surg ically absent. There is a small fat-containing left inguinal hernia. Suboptimal evaluation for bowel pathology due to the lack of intravenous and oral contrast. However, there is no definite bowel wall thickening or obstruction. Normal appendix. Colonic diverticulosis. No evidence for acute diverticuli tis. IMPRESSION: 1. Moderate bladder wall thickening with adjacent fat stranding. This may represent a cystitis. Recom mend correlation with urinalysis. 2. Mild left perinephric edema/fat stranding which has progressed. This could represent an associated pyelonephritis. 3. Absent right kidney. 4. No renal or ureteral calculi. No hydronephrosis. 5. No bowel wall thickening or obstruction. 6. There is a partially visualized focal irregular density within the right lower lobe abutting the m ajor fissure which has increased in size and currently measures 18 mm. This previously measured 9 mm. Dedicated follow-up nonemergent chest CT recommended to exclude the possibility of a small primary b ronchogenic malignancy. 7. Trace bilateral pleural effusions and a small pericardial effusion. 8. Stable splenomegaly. 9. Additional findings as described above. ACT 112: Positive. There are findings on this exam that require communication between the performing entity and the patient following Patient Test Result Information Act ([place] Act 112) guidelines. Electronically signed by: Jamey Ambrosio M.D. 02/13/2024 1:25 PM
[2024-02-13 13:30] LABS: Basophils # (auto) 0.02 K/uL (0.00-0.20); Basophils % (auto) 0.2 %; Eosinophils # (auto) 0.01 K/uL (0.00-0.50); Eosinophils % (auto) 0.1 %; Hematocrit (blood only) 38.2 % (42.0-52.0); Hemoglobin 13.4 g/dl (14.0-18.0); Immature Granulocytes # (auto) 0.08 K/uL (0.01-0.20); Immature Granulocytes % (auto) 0.7 %; Lymphocytes # (auto) 0.53 K/uL (1.20-3.40); Lymphocytes % (auto) 4.5 %; Mean Corpuscular Hemoglobin 31.9 pg (25.0-34.0); Mean Corpuscular Hgb Conc 35.1 g/dL (32.0-36.0); Mean Platelet Volume 11.6 fL (9.4-12.4); Monocytes # (auto) 0.59 K/uL (0.11-0.59); Neutrophils # (auto) 10.65 K/uL (1.40-6.50); Neutrophils % (auto) 89.5 %; Platelet Count 121 K/uL (130-400); RDW Coefficient of Variation 14.4 % (11.5-14.5); RDW Standard Deviation 47.6 fL (36.4-46.3); White Blood Count 11.88 K/ul (4.8-10.8)
[2024-02-13 13:46] LABS: Albumin Globulin Ratio 1.4 (0.9-2); Albumin Level 3.8 gm/dl (3.4-5.0); BUN Creatinine Ratio 18.7 (10-20); Bilirubin,Total 1.9 mg/dl (0.2-1.0); Calcium 9.1 mg/dl (8.6-10.3); Creatinine Clr Calc Pharmacy 38.5 ml/min; Est GFR (African American) 44.4 ml/min; Est GFR (Non-African American) 38.3 ml/min; Globulin 2.8 gm/dl (2.5-4.0); Magnesium 1.7 mg/dl (1.7-2.4); Potassium 3.7 mmol/L (3.5-5.1); Total Protein 6.6 gm/dl (6.0-8.3)
[2024-02-13 13:50] LABS: Troponin I High Sensitivity 8.8 pg/ml (0-20)
[2024-02-13 13:54] LABS: INR 1.3 (0.9-1.1); Partial Thromboplastin Ratio 1.5; Partial Thromboplastin Time 41 Seconds (21-31); Prothrombin Time 13.8 Seconds (9.0-12.0)
[2024-02-13 13:54] LABS: Appearance Urine Clear (Clear); Bacteria Urine Automated None Seen (None Seen); Bilirubin Urine Negative (Negative); Blood Urine 2+ (Negative); Cast Urine Automated 0-2 /lpf (0-2); Color Urine Dark Yellow; Epithelial Cell Urine Auto 0-2 /hpf (0-2); Glucose Urine UA Negative (Negative); Ketones Urine Trace (Negative); Leukocyte Esterase Urine Negative (Negative); Nitrite Urine Negative (Negative); Protein Urine 2+ (Negative); Specific Gravity Urine 1.023 (1.000-1.030); Urobilinogen Urine Negative (Negative); WBC Urine Automated 0-5 /hpf (0-5)
--- NOTE | 2024-02-13 14:18 | XRay Report ---
XR chest 1V portable CLINICAL HISTORY: Sepsis TECHNIQUE: Single frontal radiograph of the chest was obtained. Comparison: Comparison is made to chest radiograph 10/09/2019 FINDINGS: No lines and tubes are seen. The cardiomediastinal silhouette is normal. Emphysema is seen without ai rspace opacities. No evidence of pleural effusion or pneumothorax. IMPRESSION: No acute abnormalities and in particular no radiographic evidence of pneumonia. ACT 112: Negative or not required by law. Electronically signed by: Tee Lima M.D. 02/13/2024 2:17 PM
[2024-02-13] MEDS: CEFEPIME 2,000 MG/20 ML VIAL IV STA (14:32)
[2024-02-13] MEDS: SODIUM CHLORIDE 0.9% 1,000 ML IV SCH (14:32)
--- NOTE | 2024-02-13 14:32 | History & Physical Report ---
Date of Service February 13, 2024 Assessment & Plan (1) Sepsis: Plan: Sepsis, suspect UTI UA is not overtly infected appearing however patient did receive 2 doses of antibiotics at [facility]. Unclear what this was, UA/UC and antibiotic treatment at that time is pending. Patient was discharged but due to concerns for sepsis from his PCP at follow-up was referred back to the ER for further care Patient has a leukocytosis, elevated Pro-Theodore at 5.9, elevated lactate at 2.2, and evidence of cystitis with pyelonephritis on CT consistent with sepsis due to complicated UTI Admit on cefepime. Follow UCx, and will also obtain records from [facility] for their urine cultures - BC at [place] +for GPC chains prelim group G strep in BC x1 Blood cultures pending, UC pending Additional 500 cc LR bolus ordered to complete 30 cc/kg sepsis guidelines No hypoxia CBC/BMP daily Lactate 2.2 on admission, repeat post fluids pending Continue daptomycin/cefepime until final speciation of cultures are available. Of note while 1 blood culture bottle was positive for GPC, E[facility] remains with no growth Patient did have some pain spreading up his left flank with CVA tenderness, this has improved/resolved at time of admitting assessment and does not have midline spinal tenderness (2) Complicated UTI (urinary tract infection): (3) CKD (chronic kidney disease), stage III: Plan: CKD 3 Creatinine 1.71 on admission, this is near patient's baseline (4) Emphysema lung: Plan: No wheezing on admission Right lower lobe irregular density previously 9 mm now 18 mm is seen. This will require dedicated CT to follow-up. Contrast currently limited by patient's renal function and sepsis, and do not recommend emergent workup for this as even if cancer is unlikely to impact his immediate treatment. Patient is aware of this, will treat sepsis first and then follow-up with CT or MRI once improved and stable. He is aware that this could be malignancy, notes that he has followed this on x-rays in the past but was previously stable. Continue inhaler/formulary equivalent (5) H/O right nephrectomy: Plan: History of solitary kidney Noted (6) Paroxysmal atrial fibrillation with RVR: Plan: Paroxysmal atrial fibrillation On anticoagulation with rivaroxaban Patient with rate of 130s, A-fib on admission. Rate control deferred until patient has been adequately volume resuscitated and treated per sepsis protocol Following initiation of fluids and antibiotics rate is downtrending, improving to 1001 10 on reassessment. Will admit to PCU with metoprolol on-call if needed. Patient reports he has not needed any rate control/CCB/BB in the past for his A-fib (7) Hyponatremia: Plan: Acute on chronic hyponatremia ? Solute depletion versus SIADH. Patient does have enlarging lung nodule as noted above. Trend BMP. Fluid resuscitation as above. Will repeat spot BMP in 4 hours, urine electrolytes/osmolality and serum osmolality are pending Plan BPH with LUTS Bladder scan as needed DVT prophylaxis: Anticoagulated Disposition: PCU for sepsis, and A-fib rate control availability CODE STATUS: Full code Diet: Heart healthy History of Present Illness Primary Care Provider: Zane Vaughan is a 74-year-old male with a past medical history of emphysema, BPH with LUTS, [id number] baseline creatinine approximately 1.662.0, history of right nephrectomy who was seen in [facility] yesterday and had blood work performed for urinary symptoms and fevers, and after dc saw his PCP for followup was recommended to proceed to the ER for suspected sepsis. Leukocytosis of 11.8, febrile, tachycardic with A-fib/RVR. Creatinine is near baseline at 1.71. Lactate 2.2. Procalcitonin elevated at 5.9. UA is with ketones/blood but without leukocyte esterase/bacteria. CT of the abdomen/pelvis show bladder wall thickening with fat stranding suspicious for cystitis, left perinephric fat stranding progressed from prior suspicious for pyelonephritis, surgically absent right kidney, right lower lobe irregular density at 18 mm previously 9 mm and for which a follow-up chest CT to exclude bronchogenic malignancy is recommende d, trace bilateral pleural effusions, and small pericardial effusion seen. Afib RVR on admit. +L flank pain. Got 2 doses of Abx at [place], records pending an dunclear what was given cefepime ordered met IBW guidelines for fluids due to pleural effusions Clement is seen at the bedside ith his present. He returned to the area from [facility] this past weekend. Developed a pain in his LEFT posterior flank on Sunday. Jabbing intermittent pain which seemed to slowly spread up the R side of the back. He took some colchecine which he has for gout and did have a large steak before starting sx. Took 3x total, but then his whole body started to ache after. Hot showers didn't help. Hot pad did not help. Went to bed at 4am, woke up still with diffuse body aches. Next morning tried to call for massage therapy. Had cupping and deep tissue massage which did seem to help a lot, but still had some pain in hi L flank. Made an appointment for today with PCP. Went to the ER Sunday night prior to that to get labs, got urine samples. Got empiric cefepime. Lactate was elevated. Was offered admission vs return home if feeling well. was dced without an antibiotic. Was told he had an infection, but id not know what it was at the time. At PCP followup was reffered bck to the ER for suspected sepsis. Subsequently cultures positive for GPC in UC with peciation pending, preliminary group g strep. +fevers, chills overnight. 102*F No history of heart attacks. Hx of afib on xarelto, not on rate control No history of lung disease hx of soliday kidney due to donating one to his brother Has seen nodules on lung xrays in the past, thought these were stable and has not seen pump or had a dedicated CT Does not think his urination has changed very much, has been darker than normal however Medical History: Reviewed Medications: Reviewed Surgical History: Reviewed Family history: Reviewed Allergies: Reviewed Social History: Reviewed Code Status: FUll Allergies Allergy/AdvReac Type Severity Reaction Status Date / Time No Known Allergies Allergy Verified 02/13/24 15:07 Home Medications Medication Instructions Recorded Confirmed Type albuterol sulfate 90 mcg/actuation 1 puffs inhalation UD PRN ASTHMA 06/05/19 10/01/23 History aerosol inhaler (Ventolin HFA) allopurinol 300 mg tablet 300 mg PO QAM 06/05/19 10/01/23 History artificial 1 drops ophthalmic (eye) UD PRN 06/05/19 10/01/23 History tears([id number]) ITCHY/BURNY EYES 0.1 %-0.3 %-0.2 % eye drops (GenTeal Tears Moderate) losartan 50 mg-hydrochlorothiazide 1 tab PO QAM 06/05/19 10/01/23 History 12.5 mg tablet loratadine 10 mg tablet (Claritin) 10 mg PO DAILY PRN SEASONAL 10/01/19 10/01/23 History ALLERGIES acetaminophen 500 mg tablet 1,000 mg PO Q6H PRN Pain 10/07/19 10/01/23 History (Tylenol Extra Strength) fluticasone 100 mcg-salmeterol 50 1 puff inhalation BID 10/07/19 10/01/23 History mcg/dose blistr powdr for inhalation (Wixela Inhub) docusate sodium 100 mg capsule 100 mg PO BID #60 caps 10/30/19 10/01/23 Rx (Colace) amlodipine 5 mg tablet 5 mg PO DAILY 12/23/21 10/01/23 History rosuvastatin 10 mg tablet 10 mg PO DAILY 12/23/21 10/01/23 History rivaroxaban 15 mg tablet (Xarelto) 15 mg PO DAILY 07/05/22 10/01/23 History aspirin 81 mg capsule 81 mg PO DAILY 03/12/23 10/01/23 History semaglutide 7 mg tablet (Rybelsus) 7 mg PO DAILY 03/12/23 10/01/23 History famotidine 40 mg tablet mg 02/13/24 History Past Med/Surg History Problem List (Updated 02/13/24 @ 15:07 by Lucas Multani MD) Hyponatremia Paroxysmal atrial fibrillation with RVR H/O right nephrectomy Donated to brother - PT NOT SURE WHAT SIDE HE DONATED CKD (chronic kidney disease), stage III Complicated UTI (urinary tract infection) Sepsis Esophageal stricture Emphysema lung Elevated PSA Prostate ca (Chronic) BPH with urinary obstruction Hyperuricemia Left cataract Chronic kidney disease Medical History Asthma Blind left eye CKD (chronic kidney disease), stage III Diabetes Emphysema lung Gout Hayfever Hypertension Prostate cancer Solitary kidney Tooth infection Surgical History H/O right inguinal hernia repair H/O right nephrectomy History of colonoscopy History of corneal transplant History of endoscopy History of left cataract surgery History of meniscectomy of left knee History of neck surgery Family History Mother , age 80s alzheimers No problems noted. Father , age early 80s CVA No problems noted. Brother , age 65 renal disease No problems noted. Brother No problems noted. Brother Skin cancer Daughter No problems noted. Daughter No problems noted. Son No problems noted. Social History Smoking Status: Never smoker Do You Dip or Chew Tobacco: No; Hx Alcohol Use: Yes (social) Alcohol type: wine and hard liquor Hx Substance Use: No Preferred Language: Urdu Communication Ability: Effective Communication Ability Comment: BLIND LEFT EYE Wildlife [employer] Internship Required: No Beliefs That Will Affect Care: Baptist Baptist Beliefs: PRESBYTERIAN marital status: Current Living Situation: Spouse current occupation: retired salesman heavy equipment other: loss vision left eye Feels Safe at Home: Yes Childhood Exposure to Second-Hand Smoke: No caffeine: Yes (2 cups per day ) during the past year weight has: remained stable Dental Care, Regularly: Yes Physical Activity Frequency: Daily Seatbelt Use: always Sunscreen Use: No Assistive Devices: Glasses Physical Exam Physical Exam: General: A&Ox3. NAD. Cooperative. HEENT: Atraumatic, normocephalic. Vision/hearing intact Pulm: Diminished in the bases but otherwise clear. Symmetrical chest rise. No increased work of breathing. No respiratory distress. Cardiac: irir, tachycardic. Radial pulses intact and symmetrical. Abdominal: No guarding/rebound. Nontender. Left mild CVA tenderness is present Results & Data Results & Data Vital Signs (Past 12 Hours) Vital Signs Temp Pulse Resp BP Pulse Ox O2 Del Method 02/13/24 12:15 36.8 C 135 H 20 130/84 97 Room Air PG Care Time/CCT Total # of Minutes Spent Total Time Spent with Patient: Total time spent is greater than 50% in coordination of care (as documented) at patient's floor/unit and/or counseling patient: Coding Level of Care Code 02607 INT INP/OBS CARE 3/75MIN Diagnoses Sepsis A41.9 Complicated UTI (urinary tract infection) N39.0 CKD (chronic kidney disease), stage III N18.3 Emphysema lung J43.9 H/O right nephrectomy Z90.5 Paroxysmal atrial fibrillation with RVR I48.0 Hyponatremia E87.1
[2024-02-13] MEDS ORDERED: GLUCAGON FOR INJ 1 MG VIAL SQ PRN (15:15)
[2024-02-13] MEDS ORDERED: GLUCOSE 10 TAB/TUBE PO PRN (15:15)
[2024-02-13] MEDS ORDERED: GLUCOSE 40% GEL 15 GM TUBE PO PRN (15:15)
[2024-02-13] MEDS ORDERED: DEXTROSE 50% 50 ML SYRINGE IV PRN (15:15)
[2024-02-13] MEDS ORDERED: CARBOHYDRATES FOR HYPOGLYCEMIA PO PRN (15:15)
[2024-02-13] MEDS: LACTATED RINGER'S 500 ML IV ONE ×2 (15:27→22:48)
[2024-02-13] MEDS: DAPTOmycin 450 MG in SYRINGE 0 ML IV STA (15:28)
--- NOTE | 2024-02-13 15:57 | Emergency Department Note ---
Impression & Plan Sepsis, Atrial fibrillation with rapid ventricular response ED Provider Note NAME: SHELLY KENNEDY AGE: 74 SEX: Male INFORMANT: Patient ED PROVIDER(S): Jim Sim MD CHIEF COMPLAINT: Infection PLAN: Disposition: Admitted Outpatient prescription management: none Referral: None MEDICAL DECISION MAKING: Patient presented due to direction of primary care office. I did speak with the PA there and there was definite concerns for SBI. Patient was evaluated on arrival and was found to be dealing with a rapid A-fib. He was not hypotensive. Clinically he looked well. He did have some left CVA tenderness. He had cultures, fluids, antibiotics and blood work done. CT imaging was performed. Patient is aware of the pre-existing nodules. We did discuss the renal cyst. Due to the concerns about infection his antibiotics were continued. He received cefepime. Discussed with the ED pharmacist. I did obtain old records from the [place] ER visit. They did result cultures this afternoon, just a few hours ago that showed both bottles of the patient's blood cultures with a gram- positive cocci. We had a daptomycin. Patient did receive 2 L of normal saline. Patient's lactate was mildly elevated as well as his white count. His heart rate did improve as fluids were given. He will need further management in the hospital and he was in agreement. Consultation was made with Dr. Lucas Multani of the [facility] service. Patient was evaluated in the ER for further management. We discussed his sepsis fluids as well and in order to meet his ideal body weight fluid calculations the patient will be given additional 500 mL of LR. Repeat lactate was normal and on reassessment the patient was doing well. No hypotension. Patient did not require direct rate control with A-fib. Care/management discussed with: customer project manager Level of care consideration(s): After review of the information above and other included data, I feel the patient requires escalation of care to admission Triage Nursing notes: reviewed and agree them. Vital Signs: reviewed and remarkable for tachycardia Additional History obtained from: Patient is treating PA at the [place] office regarding his ED visit and concerns for sepsis. Chronic Medical/Social Conditions affecting care: A-fib, anticoagulation, solitary kidney Prior/ Outside/ External records reviewed: I did obtain the records from the [place] emergency department visit from yesterday. Patient did receive IV cefepime. He had leukocytosis and lactic acidosis noted. Differential Diagnosis: Sepsis, UTI, pneumonia, metabolic, electrolyte abnormalities, cardiac sources, intracerebral event, toxicologic, neurologic, as well as other pathologies. Diagnostics, independently interpreted by me: ECG: Twelve-lead ECG reveals atrial fibrillation with rapid ventricular response at 137 bpm. Low voltage QRS. No ST elevation or depression. Anterior Q waves present. Cardiac Monitoring: Cardiac monitoring ordered by me: The patient was placed on continuous cardiac monitoring and observed. It revealed atrial fibrillation with rapid ventricular response at 115 Medical decision rules: none Imaging studies: CT scan of the abdomen pelvis revealed: Left renal cysts. Patient has findings concerning for cystitis. HPI: 74 year old Male arrives for evaluation of infection. Patient was referred from Dr. Rodriguez's office due to concerns about infection, possibly sepsis. Patient noted several days of chills and bodyaches. He went to the [facility] yesterday. Workup was done. He had an elevated white blood cell count and lactic acidosis. He was treated with IV cefepime. Record indicates the patient was offered admission but declined. Patient to follow-up with his primary office today. Primary office was very concerned due to his low blood pressure, tachycardia and findings yesterday. 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 Patient does note some left CVA tenderness and discomfort that was before. He noted the shakes and muscle aches have improved. Pt denies LOC, headache, diaphoresis, visual changes, neck pain, chest pain, breathing difficulties, nausea, vomiting, abdominal pain,melena, hematochezia, urinary symptoms, numbness, weakness, lymphadenopathy, rash, or other complaints. PAST MEDICAL HISTORY: See Below, A-fib, anticoagulated PAST SURGICAL HISTORY: See Below, SOCIAL HISTORY: See Below, HOME MEDICATIONS: See Below ALLERGIES: See Below VITALS: See Below PHYSICAL EXAMINATION: GENERAL: Awake, alert, well-appearing, in no distress HENT: Normocephalic, atraumatic. Oropharynx unremarkable. EYES: Normal conjunctiva. Sclera non-icteric. NECK: Inspection normal. Non-tender. Supple. No nuchal rigidity. FROM. No masses. RESPIRATORY: Clear to auscultation. No wheezes. No rales. Normal respiratory effort. CARDIAC: Irre tachycardic left gular rate. Irregular rhythm. No murmurs. No rubs. Extremities warm and well perfused. Pulses equal. No JVD. GI: Soft, non-distended. No tenderness to palpation. No rebound or guarding. No masses. RECTAL: Deferred. MUSCULOSKELETAL: Atraumatic. Chest examination reveals no tenderness. The back is symmetrical on inspection without obvious abnormality. There is left CVA tenderness to palpation. No joint edema. LOWER EXTREMITIES: Calves are equal size bilaterally and non-tender. No edema. No discoloration. NEURO: Normal sensorium. No sensory or motor deficits noted. SKIN: No rash or jaundice noted. PROCEDURES: none CRITICAL CARE: I have personally 30 minutes of critical care time in the direct management of this patient. This includes bedside care, interpretation of diagnostic studies, and testing, discussion with consultants, patient, and family members, and other required patient management activities. These minutes are in excess of all separately billable procedures. OBSERVATION NOTE: none Past Med/Surg History Problem List (Updated 02/13/24 @ 15:57 by Jim Sim MD) Atrial fibrillation with rapid ventricular response (Acute) Sepsis (Acute) Hyponatremia Paroxysmal atrial fibrillation with RVR H/O right nephrectomy Donated to brother - PT NOT SURE WHAT SIDE HE DONATED CKD (chronic kidney disease), stage III Complicated UTI (urinary tract infection) Sepsis Esophageal stricture Emphysema lung Elevated PSA Prostate ca (Chronic) BPH with urinary obstruction Hyperuricemia Left cataract Chronic kidney disease Medical History Asthma Blind left eye CKD (chronic kidney disease), stage III Diabetes Emphysema lung Gout Hayfever Hypertension Prostate cancer Solitary kidney Tooth infection Surgical History H/O right inguinal hernia repair H/O right nephrectomy History of colonoscopy History of corneal transplant History of endoscopy History of left cataract surgery History of meniscectomy of left knee History of neck surgery Family History Mother , age 80s alzheimers No problems noted. Father , age early 80s CVA No problems noted. Brother , age 65 renal disease No problems noted. Brother No problems noted. Brother Skin cancer Daughter No problems noted. Daughter No problems noted. Son No problems noted. Social History Smoking Status: Never smoker Do You Dip or Chew Tobacco: No; Hx Alcohol Use: Yes (social) Alcohol type: wine and hard liquor Hx Substance Use: No Preferred Language: Citizen Of [place] Communication Ability: Effective Communication Ability Comment: BLIND LEFT EYE Bi Specialist Required: No Beliefs That Will Affect Care: Taoist Taoist Beliefs: PRESBYTERIAN marital status: Current Living Situation: Spouse current occupation: retired salesman heavy equipment other: loss vision left eye Feels Safe at Home: Yes Childhood Exposure to Second-Hand Smoke: No caffeine: Yes (2 cups per day ) during the past year weight has: remained stable Dental Care, Regularly: Yes Physical Activity Frequency: Daily Seatbelt Use: always Sunscreen Use: No Assistive Devices: Glasses Allergies Allergies Allergy/AdvReac Type Severity Reaction Status Date / Time No Known Allergies Allergy Verified 02/13/24 15:07 Home Meds Home Medications Medication Instructions Recorded Confirmed albuterol sulfate 90 mcg/actuation 1 puffs inhalation UD PRN ASTHMA 06/05/19 02/13/24 aerosol inhaler (Ventolin HFA) allopurinol 300 mg tablet 300 mg PO QAM 06/05/19 02/13/24 artificial 1 drops ophthalmic (eye) UD PRN 06/05/19 02/13/24 tears(detpoax-vcwakbut-twhpdpu) ITCHY/BURNY EYES 0.1 %-0.3 %-0.2 % eye drops (GenTeal Tears Moderate) losartan 50 mg-hydrochlorothiazide 1 tab PO QAM 06/05/19 02/13/24 12.5 mg tablet loratadine 10 mg tablet (Claritin) 10 mg PO DAILY PRN SEASONAL 10/01/19 02/13/24 ALLERGIES acetaminophen 500 mg tablet 1,000 mg PO Q6H PRN Pain 10/07/19 02/13/24 (Tylenol Extra Strength) rosuvastatin 10 mg tablet 10 mg PO DAILY 12/23/21 02/13/24 rivaroxaban 15 mg tablet (Xarelto) 15 mg PO DAILY 07/05/22 02/13/24 semaglutide 7 mg tablet (Rybelsus) 7 mg PO DAILY 03/12/23 02/13/24 GenTeal Gel 1 applic ophthalmic (eye) UD PRN 02/13/24 02/13/24 itchy, dry eyes Pataday 1 drp ophthalmic (eye) BID PRN 02/13/24 02/13/24 itchy, dry eyes Refresh Tears 1 drp ophthalmic (eye) UD PRN Dry 02/13/24 02/13/24 Eyes Vitamin D3 1 cap PO DAILY 02/13/24 02/13/24 colchicine 0.6 mg tablet 0.6 mg PO DAILY PRN gout 02/13/24 02/13/24 famotidine 40 mg tablet 40 mg PO DAILY 02/13/24 02/13/24 fluticasone 250 mcg-salmeterol 50 1 inh inhalation DAILY 02/13/24 02/13/24 mcg/dose blistr powdr for inhalation menthol-herbal drugs lozenges 1 hugh mucous membrane UD PRN Other 02/13/24 02/13/24 (Ricola lozenges) Results & Data (ED) Vital Signs Vital Signs - 24 hr 02/13/24 02:35 02/13/24 03:00 02/13/24 03:02 Temperature Temperature Source Pulse Rate 115 H 112 H Pulse Rate from SpO2 Sensor 123 H 112 H Respiratory Rate 29 H 20 Respiratory Effort / Characteristics Respiratory Depth Blood Pressure 120/87 Blood Pressure Mean 91 Blood Pressure Position Pulse Oximetry 94 97 Oxygen Delivery Method Sepsis Recent Fever Within 48 Hours Sepsis New/Unexplained Change in Mental Status Sepsis Action Taken by Nursing 02/13/24 03:02 02/13/24 03:31 02/13/24 03:31 Temperature Temperature Source Pulse Rate 99 H 109 H Pulse Rate from SpO2 Sensor 100 H 116 H Respiratory Rate 17 27 H Respiratory Effort / Characteristics Respiratory Depth Blood Pressure 130/84 Blood Pressure Mean 98 Blood Pressure Position Pulse Oximetry 94 98 Oxygen Delivery Method Sepsis Recent Fever Within 48 Hours Sepsis New/Unexplained Change in Mental Status Sepsis Action Taken by Nursing 02/13/24 12:15 02/13/24 12:21 02/13/24 12:21 Temperature 36.8 C Temperature Source Oral Pulse Rate 135 H 103 H Pulse Rate from SpO2 Sensor Respiratory Rate 20 18 Respiratory Effort / Characteristics Non-Labored Spontaneous Respiratory Depth Normal Blood Pressure 130/84 Blood Pressure Mean 99 Blood Pressure Position Sitting Pulse Oximetry 97 97 97 Oxygen Delivery Method Room Air Room Air Room Air Sepsis Recent Fever Within 48 Hours Yes Sepsis New/Unexplained Change in Mental Status No Sepsis Action Taken by Nursing No Action Required Laboratory Data 02/13/24 13:07 02/13/24 13:07 Lab Results 02/13/24 02/13/24 Range/Units 13:07 13:35 WBC 11.88 H (4.8-10.8) K/ul RBC 4.20 L (4.70-6.10) M/uL Hgb 13.4 L (14.0-18.0) g/dl Hct 38.2 L (42.0-52.0) % MCV 91.0 (80.0-100.0) fL MCH 31.9 (25.0-34.0) pg MCHC 35.1 (32.0-36.0) g/dL RDW Std Deviation 47.6 H (36.4-46.3) fL RDW Coeff of Sarah 14.4 (11.5-14.5) % Plt Count 121 L (130-400) K/uL MPV 11.6 (9.4-12.4) fL Immature Gran % (Auto) 0.7 % Neut % (Auto) 89.5 % Lymph % (Auto) 4.5 % Smith % (Auto) 5.0 % Eos % (Auto) 0.1 % Baso % (Auto) 0.2 % Neut # (Auto) 10.65 H (1.40-6.50) K/uL Lymph # (Auto) 0.53 L (1.20-3.40) K/uL Smith # (Auto) 0.59 (0.11-0.59) K/uL Eos # (Auto) 0.01 (0.00-0.50) K/uL Baso # (Auto) 0.02 (0.00-0.20) K/uL Immature Gran # (Auto) 0.08 (0.01-0.20) K/uL PT 13.8 H (9.0-12.0) Seconds INR 1.3 H (0.9-1.1) APTT 41 H (21-31) Seconds PTT Ratio 1.5 Sodium 131 L (136-145) mmol/L Potassium 3.7 (3.5-5.1) mmol/L Chloride 99 (98-107) mmol/L Carbon Dioxide 22 (21-32) mmol/L Anion Gap 10 (3-11) BUN 32 H (6-23) mg/dl Creatinine 1.71 H (0.6-1.4) mg/dl Est Cr Clr Drug Dosing 38.5 ml/min Est GFR ( Amer) 44.4 ml/min Est GFR (Non-Af Amer) 38.3 ml/min BUN/Creatinine Ratio 18.7 (10-20) Glucose 223 H (70-99(Fasting)) mg/dl Lactate 2.2 H* (0.4-2.0) mmol/L Calcium 9.1 (8.6-10.3) mg/dl Magnesium 1.7 (1.7-2.4) mg/dl Total Bilirubin 1.9 H (0.2-1.0) mg/dl AST 17 (13-39) U/L ALT 11 (7-52) U/L Alkaline Phosphatase 91 (34-104) U/L Troponin I High Sens 8.8 (0-20) pg/ml Total Protein 6.6 (6.0-8.3) gm/dl Albumin 3.8 (3.4-5.0) gm/dl Globulin 2.8 (2.5-4.0) gm/dl Albumin/Globulin Ratio 1.4 (0.9-2) Procalcitonin 5.97 H (0-0.5) ng/ml Urine Color Dark Yellow Urine Appearance Clear (Clear) Urine pH 6.0 (4.5-7.5) Ur Specific [place] 1.023 (1.000-1.030) Urine Protein 2+ H (Negative) Urine Glucose (UA) Negative (Negative) Urine Ketones Trace H (Negative) Urine Blood 2+ H (Negative) Urine Nitrite Negative (Negative) Urine Bilirubin Negative (Negative) Urine Urobilinogen Negative (Negative) Ur Leukocyte Esterase Negative (Negative) Urine WBC (Auto) 0-5 (0-5) /hpf Urine RBC (Auto) 6-10 H (0-2) /hpf U Hyaline Cast (Auto) 0-2 (0-2) /lpf U Epithel Cells (Auto) 0-2 (0-2) /hpf Urine Bacteria (Auto) None Seen (None Seen) Administered Medications Discontinued Medications Sodium Chloride (Nss) 1,000 mls @ 999 mls/hr IV .Q1H1M JESSEE Stop: 02/13/24 15:45 Last Admin: 02/13/24 14:32 Dose: 999 mls/hr Documented By: SADAF Cefepime HCl (Maxipime) 2,000 mg in 20 mls @ 5 mls/min IV NOW STA; Protocol Stop: 02/13/24 13:36 Last Admin: 02/13/24 14:32 Dose: 5 mls/min Documented By: SADAF Lactated Ringer's (Lr) 500 mls @ 999 mls/hr IV .Q31M ONE Stop: 02/13/24 15:03 Last Admin: 02/13/24 15:27 Dose: 999 mls/hr Documented By: SADAF Daptomycin 450 mg/ Syringe 9 mls @ 4.5 mls/min IV NOW STA; Protocol Stop: 02/13/24 14:40 Last Admin: 02/13/24 15:28 Dose: 4.5 mls/min Documented By: SADAF Imaging Data Radiologist's Impression: Abdomen/Pelvis CT 02/13/24 12:[address] WITHOUT CONTRAST CT DOSE: 1018.18 mGy.cm HISTORY: Fever. Hematuria. TECHNIQUE: Multiaxial CT images of the abdomen and pelvis were performed without contrast. A dose lowering technique was utilized adhering to the principles of ALARA. COMPARISON STUDY: Abdomen and pelvis CT 09/01/2019. FINDINGS: There is a partially visualized focal irregular density within the right lower lobe abutting the major fissure on image 4. This is increased in size and currently measures 18 mm. This previously measured 9 mm. There is a stable 4 mm nodule within the left lower lobe on image 15. Additional bibasilar linear densities favor subsegmental atelectasis are scarring. There are trace bilateral pleural effusions. Small pericardial effusion. No pneumoperitoneum. No pneumatosis. No acute fractures. There is a tiny hiatus hernia. There are 2 subcentimeter hypodense lesions within the liver. These are technically too small to characterize but statistically represent cysts. The spleen is mildly enlarged measuring 14 cm in length. This is unchanged. There is a 19 mm hypodense lesion within the spleen posteriorly. This is also indeterminate but favors a benign lesion. The unenhanced gallbladder, pancreas, and adrenal glands unremarkable. The right kidney is absent. There is compensatory hypertrophy of the left kidney which contains multiple hypodense lesions. These likely represent cysts. Dominant cyst within the lower pole contains a punctate focus of calcification and measures 6.8 cm. These suspected left renal cysts are similar to the prior study. No left renal or ureteral stones. No hydronephrosis. There is mild left perinephric edema/fat stranding. This has slightly progressed. There is a left retroaortic renal vein. Calcified plaque within the normal caliber abdominal aorta. No retroperitoneal or pelvic lymphadenopathy. No pelvic free fluid. There are small posterior bladder diverticula. There is moderate bladder wall thickening with adjacent fat stranding. The prostate gland appears surgically absent. There is a small fat-containing left inguinal hernia. Suboptimal evaluation for bowel pathology due to the lack of intravenous and oral contrast. However, there is no definite bowel wall thickening or obstruction. Normal appendix. Colonic diverticulosis. No evidence for acute diverticulitis. IMPRESSION: 1. Moderate bladder wall thickening with adjacent fat stranding. This may represent a cystitis. Recommend correlation with urinalysis. 2. Mild left perinephric edema/fat stranding which has progressed. This could represent an associated pyelonephritis. 3. Absent right kidney. 4. No renal or ureteral calculi. No hydronephrosis. 5. No bowel wall thickening or obstruction. 6. There is a partially visualized focal irregular density within the right lower lobe abutting the major fissure which has increased in size and currently measures 18 mm. This previously measured 9 mm. Dedicated follow-up nonemergent chest CT recommended to exclude the possibility of a small primary bronchogenic malignancy. 7. Trace bilateral pleural effusions and a small pericardial effusion. 8. Stable splenomegaly. 9. Additional findings as described above. ACT 112: Positive. There are findings on this exam that require communication between the performing entity and the patient following Patient Test Result Information Act ([place] Act 112) guidelines. Electronically signed by: Jamey Ambrosio M.D. 02/13/2024 1:25 PM Chest X-Ray 02/13/24 12:21 XR chest 1V portable CLINICAL HISTORY: Sepsis TECHNIQUE: Single frontal radiograph of the chest was obtained. Comparison: Comparison is made to chest radiograph 10/09/2019 FINDINGS: No lines and tubes are seen. The cardiomediastinal silhouette is normal. Emphysema is seen without airspace opacities. No evidence of pleural effusion or pneumothorax. IMPRESSION: No acute abnormalities and in particular no radiographic evidence of pneumonia. ACT 112: Negative or not required by law. Electronically signed by: Tee Lima M.D. 02/13/2024 2:17 PM Discharge Plan Visit Data Chief Complaint: Referred by Doctor Stated Complaint: POSSIBLE SEPSIS ED Provider: Jim Sim Discharge Problem: Sepsis, Atrial fibrillation with rapid ventricular response
--- NOTE | 2024-02-13 16:43 | Electrocardiogram Report ---
Test Reason : Blood Pressure : / mmHG Vent. Rate : 137 BPM Atrial Rate : 000 BPM P-R Int : 000 ms QRS Dur : 070 ms QT Int : 312 ms P-R-T Axes : 000 -22 050 degrees QTc Int : 471 ms Atrial fibrillation with rapid ventricular response Low voltage QRS Cannot rule out Anterior infarct , age undetermined Abnormal ECG No previous ECGs available Confirmed by Joe Aguilar ([id number]) on 02/13/2024 4:43:37 PM Referred By: REFERRED SELF Confirmed By:Joe Aguilar
[2024-02-13] MEDS: INSULIN ASPART PER UNIT CHARGE SC SCH (18:41)
[2024-02-13 18:48] LABS: BUN Creatinine Ratio 18.3 (10-20); Calcium 8.4 mg/dl (8.6-10.3); Creatinine Clr Calc Pharmacy 40.2 ml/min; Est GFR (African American) 46.7 ml/min; Est GFR (Non-African American) 40.3 ml/min; Potassium 3.4 mmol/L (3.5-5.1)
[2024-02-13] MEDS: ACETAMINOPHEN 325 MG TAB PO PRN (18:49)
[2024-02-13] MEDS ORDERED: ALBUTEROL HFA 8 GM INHALER INH PRN (19:02)
[2024-02-13] MEDS ORDERED: LORATADINE 10 MG TAB PO PRN (19:02)
[2024-02-13] MEDS: POTASSIUM CHLORIDE CRTAB 20 MEQ TABCR PO STA (20:23)
[2024-02-13] MEDS: LANTUS PER UNIT CHARGE SQ SCH (20:23)
[2024-02-13] MEDS: RIVAROXABAN 15 MG TAB PO SCH (22:49)
[2024-02-14] MEDS: CEFEPIME 2,000 MG in SYRINGE 0 ML IV SCH (03:22)
[2024-02-14 06:56] LABS: BUN Creatinine Ratio 17.3 (10-20); Calcium 8.4 mg/dl (8.6-10.3); Creatinine Clr Calc Pharmacy 39.2 ml/min; Est GFR (African American) 45.4 ml/min; Est GFR (Non-African American) 39.1 ml/min; Potassium 3.7 mmol/L (3.5-5.1)
[2024-02-14 07:29] LABS: Basophils # (auto) 0.02 K/uL (0.00-0.20); Basophils % (auto) 0.4 %; Eosinophils # (auto) 0.05 K/uL (0.00-0.50); Eosinophils % (auto) 0.9 %; Hematocrit (blood only) 29.4 % (42.0-52.0); Hemoglobin 10.3 g/dl (14.0-18.0); Immature Granulocytes # (auto) 0.03 K/uL (0.01-0.20); Immature Granulocytes % (auto) 0.5 %; Lymphocytes % (auto) 14.3 %; Mean Corpuscular Hemoglobin 32.1 pg (25.0-34.0); Mean Corpuscular Volume 91.6 fL (80.0-100.0); Mean Platelet Volume 11.9 fL (9.4-12.4); Monocytes % (auto) 10.7 %; Neutrophils # (auto) 4.11 K/uL (1.40-6.50); Neutrophils % (auto) 73.2 %; Platelet Count 113 K/uL (130-400); RDW Coefficient of Variation 13.9 % (11.5-14.5); RDW Standard Deviation 46.5 fL (36.4-46.3); Red Blood Count 3.21 M/uL (4.70-6.10); White Blood Count 5.61 K/ul (4.8-10.8)
[2024-02-14] MEDS: ROSUVASTATIN CALCIUM 10 MG TAB PO SCH (08:48)
[2024-02-14] MEDS: allopurinoL 300 MG TAB PO SCH (08:48)
[2024-02-14] MEDS: LOSARTAN/HCTZ 50/12.5MG TAB PO SCH (08:48)
[2024-02-14] MEDS: FAMOTIDINE 40 MG TABLET PO SCH (08:48)
[2024-02-14] MEDS: FLUTICASONE/VILANTEROL 100/25MCG 14 PUFFS/INHALER INH SCH (08:49)
[2024-02-14] MEDS ORDERED: RIVAROXABAN 15 MG TAB PO SCH (09:00)
--- NOTE | 2024-02-14 09:18 | Hospitalist Progress Note ---
Date of Service February 14, 2024 Assessment & Plan (1) Sepsis: Plan: Sepsis, suspect complicated UTI poa, history of solitary kidney s/p nephrectomy as a donation UA is not overtly infected appearing however patient did receive 2 doses of antibiotics at [facility]. Unclear what this was, UA/UC and antibiotic treatment at that time is pending. Patient was discharged but due to concerns for sepsis from his PCP at follow-up was referred back to the ER for further ca re Patient has a leukocytosis, elevated Pro-Theodore at 5.9, elevated lactate at 2.2, and evidence of cystitis with pyelonephritis on CT consistent with sepsis due to complicated UTI continue daptomycin / cefepime. Follow UCx, and will also obtain records from [facility] for their urine cultures - [facility] at [facility] +for GPC chains prelim group G strep in [facility] x1 Blood cultures pending, UC pending (2) CKD (chronic kidney disease), stage III: Plan: CKD 3 Creatinine 1.71 on admission, this is near patient's baseline (3) Emphysema lung: Plan: h/o copd and tobacco abuse Right lower lobe irregular density previously 9 mm now 18 mm is seen. This will require dedicated CT to follow-up. Contrast currently limited by patient's renal function and sepsis, and do not recommend emergent workup for this as even if cancer is unlikely to impact his immediate treatment. Patient is aware of this, will treat sepsis first and then follow-up with CT or MRI once improved and stable. He is aware that this could be malignancy, notes that he has followed this on x-rays in the past but was previously stable. Continue inhaler/formulary equivalent (4) Paroxysmal atrial fibrillation with RVR: Plan: Paroxysmal atrial fibrillation On anticoagulation with rivaroxaban Patient with rate of 130s, A-fib on admission. Rate control deferred until patient has been adequately volume resuscitated and treated per sepsis protocol Following initiation of fluids and antibiotics rate is downtrending, improving to 1001 10 on reassessment. has not required any rate controlling agents in the past and heart rate improved with treatment of infection (5) Hyponatremia: Plan: Acute on chronic hyponatremia ? Solute depletion versus SIADH. Patient does have enlarging lung nodule as noted above. Trend BMP. Fluid resuscitation as above. Will repeat spot BMP in 4 hours, urine electrolytes/osmolality and serum osmolality are pending Plan BPH with LUTS Bladder scan as needed DVT prophylaxis: Anticoagulated Disposition: PCU for sepsis, and A-fib rate control availability CODE STATUS: Full code Diet: Heart healthy Admission and Anticipated Discharge Date Admission Date: February 13, 2024 Subjective Pt feels better, still with some CVA tenderness, some right shoulder pain, no dysuria, no hematuria still feeling weakened and fatigued Physical Exam Physical Exam: pt is awake and alert cardiac is regular lungs are clear but diminished at the bases Results & Data Results & Data Vital Signs (Past 12 Hours) Vital Signs Temp Pulse Pulse Resp BP Pulse Ox O2 Del Method 02/14/24 07:40 97.9 F 106 H 17 136/81 96 Room Air 02/14/24 03:11 98.1 F 97 H 18 100/58 L 97 Room Air 02/13/24 21:59 118 H 02/13/24 21:34 Room Air 02/13/24 21:34 97.9 F 108 H 20 109/78 96 Room Air Laboratory Results reviewed cbc reviewed chemistry PG Care Time/CCT Total # of Minutes Spent Total Time Spent with Patient: Total time spent is greater than 50% in coordination of care (as documented) at patient's floor/unit and/or counseling patient: Coding Level of Care Code 56575 SUB INP/OBS CARE 3/50MIN Diagnoses Sepsis A41.9 CKD (chronic kidney disease), stage III N18.3 Emphysema lung J43.9 Paroxysmal atrial fibrillation with RVR I48.0 Hyponatremia E87.1
--- OUTSIDE RECORDS SUMMARY | 2024-02-14 12:38 | External Medical Summary | Summary of Care ---
Author Name Unknown Organization [facility] Address [address] [place] [address] Phone [phone] Care Team Providers Care Supervisor Claims Name Role Phone Wisam Mcknight MD Primary Care Provider Reason for Visit * Reason Onset Date Comments Diabetes Management 01/11/2024 Non-CE DM TRIAGE 01/11/2024 Encounter Details Date Type Department Care Team (Late st Contact Info) Description 01/11/2024 Telephone Pharmacy Call Center [address] [place] [address] Jimmy Ortiz, [facility] [address] [place] [address] Diabetes Management (Non-CE DM); TRIAGE Allergies Active Allergy Reactions Criticality Noted Date Comments Cat Dander Itching 08/05/2010 Environmental 08/05/2010 Pollen 07/05/2022 Other Reaction(s): & RAGWEED - HAYFEVER documented as of this encounter (statuses as of 02/01/2024) Medications Medication Sig Dispensed Refills Start Date End Date Status GENTEAL 0.3 % OP SOLN Instill into both eyes. 0 Active Loratadine (CLARITIN) 10 MG Cap Take 1 Capsule by mouth as needed for Allergies. 0 Active allopurinol (ZYLOPRIM) 100 MG Tablet 3 Tablets. 0 10/16/2016 Active losartan-hctz 50-12.5 mg per tab (HYZAAR) 50-12.5 MG per tablet 0 10/28/2016 Active Colchicine 0.6 MG CAPS Take by mouth as needed (Gout attack). 0 Active albuterol HFA 108 (90 BASE) MCG/ACT inhaler Inhale 2 Puffs by mouth every 6 hours as needed. 0 Active olopatadine (PATADAY) 0.1 % ophthalmic solution 1 Drop every morning. 0 Active Famotidine 40 MG Oral Tablet (Pepcid) Take 1 Tablet by mouth in the morning. 0 Active Semaglutide 7 MG Oral Tablet (Rybelsus) Take 1 tablet by mouth daily at least 30 minutes before first food, beverage or other oral medicine of the day 90 Tablet 3 09/26/2023 Active Rosuvastatin Calcium 10 MG Oral Tablet (Crestor) Take 1 tablet (10 mg) by mouth Sunday and Sunday 24 Tablet 3 10/05/2023 Active Rivaroxaban 15 MG Oral Tablet (Xarelto) Take 1 tablet (15 mg) by mouth daily with food 90 Tablet 3 11/29/2023 Active VICKS DAYQUIL SINUS 5-325 MG PO CAPS as needed 0 01/15/2024 Discontinued Ibuprofen (ADVIL) 200 MG Capsule Take 200 mg by mouth every 4 hours as needed for Pain. 0 01/15/2024 Discontinued fluticasone-salm eterol (WIXELA INHUB) 100-50 MCG/DOSE inhaler Inhale 1 Puff by mouth 2 times a day. 0 01/15/2024 Discontinued linagliptin (TRADJENTA) 5 MG Tablet Take 5 mg by mouth daily. 0 01/15/2024 Discontinued amoxicillin (AMOXIL) 500 MG Capsule Take 500 mg by mouth 3 times a day. 0 01/15/2024 Discontinued Naproxen Sodium (ALEVE) 220 MG Capsule Take 220 mg by mouth 2 times a day with morning and evening meals. 0 01/15/2024 Discontinued glipiZIDE ER 2.5 MG Oral Tablet Extended Release 24 Hour Take 2.5 mg by mouth daily. 0 01/15/2024 Discontinued amLODIPine Besylate 5 MG Oral Tablet (NORVASC) Take 5 mg by mouth daily. 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 documented as of this encounter (statuses as of 02/01/2024) Resolved Problems Problem Noted Date Diagnosed Date Resolved Date Steroid responders 08/18/2014 5 documented as of this encounter (statuses as of 02/01/2024) Social History Tobacco Use Types Packs/Day Years Used Date Smoking Tobacco: Never Smokeless Tobacco: Never Alcohol Use Standard Drinks/Week Comments Yes 0 (1 standard drink = 0.6 oz pur e alcohol) occasionally Sex and Gender Information Value Date Recorded Sex Assigned at Not on file Gender Identity Not on file Sexual Orientation Not on file Job Start Date Occupation Industry Not on file Not on file Not on file documented as of this encounter Miscellaneous Notes * Telephone Encounter - Jimmy Ortiz RPh - 01/11/2024 8:23 AM EDT [facility] Diabetes Initiative THIS NOTE SERVES FOR TRIAGING PURPOSES ONLY AND IS NOT A PATIENT CONTACT. PATIENT MAY BE CONTACTED FOLLOWING MY ASSESSMENT. Patient was identified to be a candidate for the Non- telephonic program based on the following criteria: Pharmacy AND/OR Medical High Cost / No A1c result / PDC >=80% Patient managed by [facility] provider? No; Pertinent Diabetes Info in Care Everywhere No Last A1C: ? (Result Date: ?) Diabetes Diagnosis: Type 2 After chart review the following opportunities were identified: Obtain Updated A1c and Therapy Optimization (statin adherence?) Action to be taken by sow farm barn technician: Please contact and warm transfer to [facility] if patient is agreeable Needs Language Line: No Medication Claims Data (To verify during call): Med: RYBELSUS 7 Fill date: 10/03/2023 Day Supply: 90 Quantity: 90 Jimmy Ortiz RPh Clinical Pharmacist 01/11/2024, 8:23 AM documented in this encounter Plan of Treatment Upcoming Encounters Date Type Department Care Team (Late st Contact Info) Description 07/22/2024 1:30 PM EDT Office Visit [facility], [address] [address] Luis Fernando Nix MD [address] [place] [address] Ella Stone Nurse [address] [place] [address] Seven Stoneer [address] [phone] Scheduled Procedures Name Priority Associated Diagnoses Date/Ti me COLONOSCOPY FLEXIBLE PROXIMAL DIAGNOSTIC Recall History of colon polyps Health Maintenance Due Date Last Done Comments Depression Screening 1961 Hepatitis C Screening 1967 DTaP,Tdap,and Td Vaccines (1 - Tdap) 01/21/1968 Zoster Vaccines (1 of 2) 1999 Pneumococcal Vaccine: 65+ Years (1 of 1 - PCV) 2014 COVID-19 Vaccine (3 - 2022-2 4 season) 2023 12/04/2020, 11/13/2020 Influenza Vaccine (FLU shot) (Season Ended) 2024 06/20/2022, 07/04/2021 Colonoscopy 08/11/2025 08/11/2020, 08/11/2020 Fecal Occult Blood Test Discontinued 07/07/20 20, 07/25/2019 RETIRED - COLONOSCOPY-EVERY 5 YRS AGES 18-100 Discontinued 08/11/2020, 08/11/2020 GARDASIL-HPV IMMUNIZATION SERIES Aged Out No longer eligible based on patient's age to complete this topic Hepatitis B Aged Out No longer eligi ble based on patient's age to complete this topic MENINGOCOCCAL (MENACTRA/MENVEO) Aged Out No longer eligible based on patient's age to complete this topic documented as of this encounter Medical Devices Implanted Type Area Forming Process Line Worker Device Identifier Shelf Expiration Date Model / Serial / Lot Lens 12.0 Ma60ac - [id number] Implanted:Qty: 1 on 01/23/2013 at OR [facility] Left: Eye [employer] 04/23/2013 MA60AC.120 / [id number] / Corneal Donor Implanted:Qty: 1 on 01/23/2013 at [facility] Left: Eye / [id number] / documented as of this encounter Care Teams Supervisor Claims Relationship Specialty Start Date End Date Wisam Mcknight MD [address] [place] [address] JESSIE Tapia [address] PCP - General Family Medicine 11/07/16 documented as of this encounter
--- OUTSIDE RECORDS SUMMARY | 2024-02-14 12:39 | External Medical Summary | Summary of Care ---
Author Name Unknown Organization [facility] Address [address] [place] [address] Phone [phone] Care Team Providers Care Levers Lace Machine Operator Name Role Phone Wisam Mcknight MD Primary Care Provider Reason for Visit * Reason Comments Follow Up Encounter Details Date Type Department Care Team (Late st Contact Info) Description 01/15/2024 11:00 AM EDT Office Visit [address] [address] Luis Fernando Nix MD [address] [place] [address] Ella Stone Nurse [address] [place] [address] Seven Stoneer [address] [address] Optic cupping of left eye* Allergies Active Allergy Reactions Criticality Noted Date Comments Cat Dander Itching 08/05/2010 Environmental 08/05/2010 Pollen 07/05/2022 Other Reaction(s): & RAGWEED - HAYFEVER documented as of this encounter (statuses as of 01/15/2024) Medications Medication Sig Dispensed Refills Start Date [...] with food 90 Tablet 3 11/29/2023 Active Fluticasone-Salm eterol 250-50 MCG/ACT Inhalation Aerosol Powder Breath Activated (Advair Diskus) Inhale 1 Puff by mouth in the morning and 1 Puff before bedtime. 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 Dr Wheeler's efforts much appreciated! 4- Steroid responder OS- stable now off PF OCT 04/12: c/d small OD, quite large OS. RNFL 79/64 OCT 3/21: as above, rnfl 84/64 OCT 06/14: as above, rnfl 86OD OCT 05/15: poor image OD, no change OS OCT 11/16: as above, rnfl 91 OD OCT 06/16- as above, RNFL 91/69 OCT 01/15: RNFL 94,65 documented in this encounter Nursing Notes * Deepika Messer COA - 01/15/2024 11:21 AM EDT OCT image(s) of both eyes acquired and filed/scanned into chart. * Maricel Satnamaria RN - 01/15/2024 11:12 AM EDT Clement Mahmood is a 73 year old male who presents for OCT of discs OU. Last Visit: 05/25/2023 (in office), Visit date not found (telemedicine) He currently states "It changes back and forth" Are you diabetic? Yes. Do you check your sugar daily? NO. Last Hemoglobin A1C: No results found for: "HGBA1C" Current Ophthalmic Medications: None Vision, Tonometry, current glass prescription,pupil check and dilation if done per physician protocol can be found in the ophth exam documented in this encounter Plan of Treatment Upcoming Encounters Date Type Department Care Team (Late st Contact Info) Description 07/22/2024 1:30 PM EDT Office Visit [facility] [address] [address] Luis Fernando Nix MD [address] [place] [address] Ella Stone Nurse [address] [place] [address] Seven Stoneer [address] [address] Scheduled Orders Name Type Priority Associated Diagnoses Orde r Schedule OPTIC NERVE SCAN DIAGNOSTIC IMAGE,POSTERIOR Procedures Routine Optic cupping of left eye Ordered: 01/15/2024 Scheduled Procedures Name Priority Associated Diagnoses Date/Ti me COLONOSCOPY FLEXIBLE PROXIMAL DIAGNOSTIC Recall History of colon polyps Health Maintenance Due Date Last Done Comments Lipid Panel 1949 Depression Screening 1961 Hepatitis C Screening 1967 DTaP,Tdap,and Td Vaccines (1 - Tdap) 01/21/1968 Zoster Vaccines (1 of 2) 1999 Pneumococcal Vaccine: 65+ Years (1 of 1 - PCV) 2014 COVID-19 Vaccine (3 - 2022-2 4 season) 2023 12/04/2020, 11/13/2020 Influenza Vaccine (FLU shot) (Season Ended) 2024 06/20/2022, 07/04/2021 COLONOSCOPY-EVERY 5 YRS AGES 18-100 08/11/2025 08/11/2020, 08/11/2020 GARDASIL-HPV IMMUNIZATION SERIES Aged Out No longer eligible b ased on patient's age to complete this topic Hepatitis B Aged Out No longer eligi ble based on patient's age to complete this topic MENINGOCOCCAL (MENACTRA/MENVEO) Aged Out No longer eligible b ased on patient's age to complete this topic documented as of this encounter Medical Devices Implanted Type Area Mechanical Assembly Technician Device Identifier Shelf Expiration Date Model / Serial / Lot Lens 12.0 Ma60ac - [id number] Implanted:Qty: 1 on 01/23/2013 at OR [facility] Left: Eye [employer] 04/23/2013 MA60AC.120 / [id number] / Corneal Donor Implanted:Qty: 1 on 01/23/2013 at OR [facility] Left: Eye / [id number] / documented as of this encounter Visit Diagnoses Diagnosis Optic cupping of left eye- Primary documented in this encounter Care Teams Levers Lace Machine Operator Relationship Specialty Start Date End Date Wisam Mcknight MD [address] [place] [address] JESSIE Tapia [phone] PCP - General Family Medicine 11/07/16 documented as of this encounter
--- OUTSIDE RECORDS SUMMARY | 2024-02-14 12:39 | External Medical Summary | Summary of Care ---
Author Name Unknown Organization [facility] Address [address] [place] [address] Phone [phone] Care Team Providers Care Rnfa Name Role Phone Wisam Mcknight MD Primary Care Provider Reason for Visit * Reason Onset Date Comments Diabetes Management 01/11/2024 Non-CE DM TRIAGE 01/11/2024 Encounter Details Date Type Department Care Team (Late st Contact Info) Description 01/11/2024 Telephone Pharmacy Call Center [address] [place] [address] Jimmy Ortiz, [facility] [address] [place] [address] Diabetes Management (Non-CE DM); TRIAGE Allergies Active Allergy Reactions Criticality Noted Date Comments Cat Dander Itching 08/05/2010 Environmental 08/05/2010 documented as of this encounter (statuses as of 01/11/2024) Medications Medication Sig Dispensed Refills Start Date End Date Status GENTEAL 0.3 % OP SOLN Instill into both eyes. 0 Active VICKS DAYQUIL SINUS 5-325 MG PO CAPS as needed 0 Active Loratadine (CLARITIN) 10 MG Cap Take 10 mg by mouth daily. 0 Active allopurinol (ZYLOPRIM) 100 MG Tablet 300 mg. 0 10/16/2016 Active losartan-hctz 50-12.5 mg per tab (HYZAAR) 50-12.5 MG per tablet 0 10/28/2016 Active Ibuprofen (ADVIL) 200 MG Capsule Take 200 mg by mouth every 4 hours as needed for Pain. 0 Active Colchicine 0.6 MG CAPS Take by mouth. 0 Active fluticasone-salmeter ol (WIXELA INHUB) 100-50 MCG/DOSE inhaler Inhale 1 Puff by mouth 2 times a day. 0 Active linagliptin (TRADJENTA) 5 MG Tablet Take 5 mg by mouth daily. 0 Active albuterol HFA 108 (90 BASE) MCG/ACT inhaler Inhale 2 Puffs by mouth every 6 hours as needed. 0 Active amoxicillin (AMOXIL) 500 MG Capsule Take 500 mg by mouth 3 times a day. 0 Active Naproxen Sodium (ALEVE) 220 MG Capsule Take 220 mg by mouth 2 times a day with morning and evening meals. 0 Active olopatadine (PATADAY) 0.1 % ophthalmic solution 1 Drop every morning. 0 Active glipiZIDE ER 2.5 MG Oral Tablet Extended Release 24 Hour Take 2.5 mg by mouth daily. 0 Active amLODIPine Besylate 5 MG Oral Tablet (NORVASC) Take 5 mg by mouth daily. 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 PATIENT MAY BE CONTACTED FOLLOWING MY ASSESSMENT. Patient was identified to be a candidate for the Non-CE telephonic program based on the following criteria: Pharmacy AND/OR Medical High Cost / No A1c result / PDC >=80% Patient managed by [facility] provider? No; Pertinent Diabetes Info in Care Everywhere No Last A1C: ? (Result Date: ?) Diabetes Diagnosis: Type 2 After chart review the following opportunities were identified: Obtain Updated A1c and Therapy Optimization (statin adherence?) Action to be taken by roof technician: Please contact and warm transfer to [facility] if patient is agreeable Needs Language Line: No Medication Claims Data (To verify during call): Med: RYBELSUS 7 Fill date: 10/03/2023 Day Supply: 90 Quantity: 90 Jimmy Ortiz RPh Clinical Pharmacist 01/11/2024, 8:23 AM documented in this encounter Plan of Treatment Upcoming Encounters Date Type Department Care Team (Late st Contact Info) Description 01/15/2024 11:00 AM EDT Office Visit [place] [address] [place] [address] Luis Fernando Nix MD [address] [place] [address] Ella Stone Nurse [address] [place] [phone] Seven Stoneer [address] [address] Scheduled Procedures Name Priority Associated Diagnoses Date/Ti [...] this encounter Medical Devices Implanted Type Area Rendering Equipment Tender Device Identifier Shelf Expiration Date Model / Serial / Lot Lens 12.0 Ma60ac - [id number] Implanted:Qty: 1 on 01/23/2013 at OR [facility] Left: Eye [employer] 04/23/2013 MA60AC.120 / [id number] / Corneal Donor Implanted:Qty: 1 on 01/23/2013 at OR [facility] Left: Eye / [id number] / documented as of this encounter Care Teams Rnfa Relationship Specialty Start Date End Date Wisam Mcknight MD [address] [place] [address] JESSIE Tapia [phone] PCP - General Family Medicine 11/07/16 documented as of this encounter
--- OUTSIDE RECORDS SUMMARY | 2024-02-14 12:39 | External Medical Summary | Summary of Care ---
Author Name Unknown Organization [facility] Address [address] [place] [address] Phone [phone] Care Team Providers Care Social Worker Health Services Name Role Phone Wisam Mcknight MD Primary Care Provider Encounter Details Date Type Department Care Team (Late st Contact Info) Description 12/24/2023 Orders Only Outcomes Research Department [address] [place], [place] [id number] Keyona Frazier CHRA [facility] Other*[id number] Allergies Active Allergy Reactions Criticality Noted Date Comments Cat Dander Itching 08/05/2010 Environmental 08/05/2010 documented as of this encounter (statuses as of 12/24/2023) Medications Medication Sig Dispensed Refills Start Date [...] as of this encounter (statuses as of 12/24/2023) Active Problems Problem Noted Date Diagnosed Date Steroid responders 05/19/2015 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 documented as of this encounter (statuses as of 12/24/2023) Resolved Problems Problem Noted Date Diagnosed Date Resolved Date Steroid responders 08/18/2014 5 documented as of this encounter (statuses as of 12/24/2023) Social History Tobacco Use Types Packs/Day Years [...] on file documented as of this encounter Plan of Treatment Upcoming Encounters Date Type Department Care Team (Late st Contact Info) Description 01/15/2024 11:00 AM EDT Office Visit [address] [address] Luis Fernando Nix MD [address] [place] [address] Ella Stone Nurse [address] [place] [phone] Seven Stoneer [address] [id number] Scheduled Orders Name Type Priority Associated Diagnoses Orde r Schedule MYCODE INITIAL ADULT Lab Routine [facility] Other*[id number] Expected: 12/24/2023 (Approximate), Expires: 01/12/2025 Scheduled Procedures Name Priority Associated Diagnoses Date/Ti [...] 2023 12/04/2020, 11/13/2020 Influenza Vaccine (FLU shot) (#1) 2023 06/20/2022, 07/04/2021 COLONOSCOPY-EVERY 5 YRS AGES 18-100 [...] this encounter Medical Devices Implanted Type Area Box Truck Owner Operator Device Identifier Shelf Expiration Date Model / Serial / Lot Lens 12.0 Ma60ac - [id number] Implanted:Qty: 1 on 01/23/2013 at OR [facility] Left: Eye [employer] 04/23/2013 MA60AC.120 / [id number] / Corneal Donor Implanted:Qty: 1 on 01/23/2013 at [facility] Left: Eye / [id number] / documented as of this encounter Visit Diagnoses Diagnosis [facility] Other*[id number] documented in this encounter Care Teams Social Worker Health Services Relationship Specialty Start Date End Date Wisam Mcknight MD [facility] JESSIE Tapia [address] PCP - General Family Medicine 11/07/16 documented as of this encounter
--- OUTSIDE RECORDS SUMMARY | 2024-02-14 12:39 | External Medical Summary | Summary of Care ---
Author Name Unknown Organization [facility] Address [address] [place] [address] Phone [phone] Care Team Providers Care Binder Roller Name Role Phone Wisam Mcknight MD Primary Care Provider Reason for Visit * Reason Onset Date Comments Diabetes Management 01/11/2024 Non-CE DM TRIAGE 01/11/2024 Encounter Details Date Type Department Care Team (Late st Contact Info) Description 01/11/2024 Telephone Pharmacy Call Center [address] [place] [address] Jimmy Ortiz, [facility] [address] [place] [address] Diabetes Management (Non-CE DM); TRIAGE [...] Ortiz RPh - 01/11/2024 8:23 AM EDT [facility] Non-Clinical [place] Diabetes Initiative THIS NOTE SERVES FOR TRIAGING PURPOSES ONLY AND IS NOT A PATIENT CONTACT. PATIENT MAY BE CONTACTED FOLLOWING MY ASSESSMENT. Patient was identified to be a candidate for the Non-CE telephonic program based on the following criteria: Pharmacy AND/OR Medical High Cost / No A1c result / PDC >=80% Patient managed by [facility] provider? No; Pertinent Diabetes Info in Care Everywhere No Last A1C: ? (Result Date: ?) Diabetes Diagnosis: Type 2 After chart review the following opportunities were identified: Obtain Updated A1c and Therapy Optimization (statin adherence?) Action to be taken by residential appliance repair technician: Please contact and warm transfer to [facility] if patient is agreeable Needs Language Line: No Medication Claims Data (To verify during call): Med: RYBELSUS 7 Fill date: 10/03/2023 Day Supply: 90 Quantity: 90 Jimmy Ortiz RPh Clinical Pharmacist 01/11/2024, 8:23 AM documented in this encounter Plan of Treatment Upcoming Encounters Date Type Department Care Team (Late st Contact Info) Description 01/15/2024 11:00 AM EDT Office Visit [place] [address] [place] [address] Luis Fernando Nix MD [address] [place] [phone] Ella Stone Nurse [address] [place] [phone] Seven Stoneer [address] [address] Scheduled Procedures Name Priority Associated Diagnoses Date/Ti [...] this encounter Medical Devices Implanted Type Area Residential Team Leader Device Identifier Shelf Expiration Date Model / Serial / Lot Lens 12.0 Ma60ac - [id number] Implanted:Qty: 1 on 01/23/2013 at OR [facility] Left: Eye [employer] 04/23/2013 MA60AC.120 / [id number] / Corneal Donor Implanted:Qty: 1 on 01/23/2013 at OR [facility] Left: Eye / [id number] / documented as of this encounter Care Teams Binder Roller Relationship Specialty Start Date End Date Wisam Mcknight MD [address] [place] [address] JESSIE Tapia [phone] PCP - General Family Medicine 11/07/16 documented as of this encounter
[2024-02-14] MEDS: DAPTOmycin 450 MG in SYRINGE 0 ML IV SCH (17:32)
[2024-02-15 08:34] LABS: Basophils # (auto) 0.01 K/uL (0.00-0.20); Basophils % (auto) 0.2 %; Eosinophils # (auto) 0.04 K/uL (0.00-0.50); Eosinophils % (auto) 0.6 %; Hemoglobin 11.5 g/dl (14.0-18.0); Immature Granulocytes # (auto) 0.03 K/uL (0.01-0.20); Immature Granulocytes % (auto) 0.5 %; Lymphocytes % (auto) 14.1 %; Mean Corpuscular Hemoglobin 31.3 pg (25.0-34.0); Mean Corpuscular Hgb Conc 34.8 g/dL (32.0-36.0); Mean Corpuscular Volume 89.7 fL (80.0-100.0); Mean Platelet Volume 11.5 fL (9.4-12.4); Monocytes # (auto) 0.58 K/uL (0.11-0.59); Monocytes % (auto) 9.1 %; Neutrophils # (auto) 4.82 K/uL (1.40-6.50); Neutrophils % (auto) 75.5 %; Platelet Count 133 K/uL (130-400); RDW Coefficient of Variation 13.5 % (11.5-14.5); RDW Standard Deviation 44.7 fL (36.4-46.3); Red Blood Count 3.68 M/uL (4.70-6.10); White Blood Count 6.38 K/ul (4.8-10.8)
[2024-02-15 08:44] LABS: BUN Creatinine Ratio 17.2 (10-20); Calcium 8.7 mg/dl (8.6-10.3); Creatinine Clr Calc Pharmacy 43.6 ml/min; Est GFR (African American) 51.6 ml/min; Est GFR (Non-African American) 44.5 ml/min; Potassium 3.6 mmol/L (3.5-5.1)
--- NOTE | 2024-02-15 11:34 | Hospitalist Progress Note ---
Date of Service February 15, 2024 Assessment & Plan (1) Sepsis: Plan: Sepsis, group G strep 4 0f 4 cultures from [facility] are positive. Initially suspected complicated UTI poa, history of solitary kidney s/p nephrectomy as a donation However urine culture from [facility] and urine culture here are negative patient did receive 2 doses of antibiotics at [facility]. Unclear what this was, checked local pharmacies for discharge on antibiotics he did not have any record of him getting prescriptions filled. Attempted to call his primary care office and they are not available at this time Patient has a leukocytosis, elevated Pro-Theodore at 5.9, elevated lactate at 2.2, and evidence of cystitis with pyelonephritis on CT Patient denies any other portals of entry for strep such as any tooth upper airway pharyngitis or skin related problems. Patient will be transition to ceftriaxone daily Call out to infectious disease consultation. Echocardiogram is ordered and pending. Difficult to pinpoint how to best evaluate the areas of pain which are his trapezius muscles bilaterally and his left CVA area. He did have a CT scan of his abdomen pelvis without comments of other changes other than the pyelonephritis and he did have a plain chest x-ray with no bony changes regarding his shoulders. (2) CKD (chronic kidney disease), stage III: Plan: NOVA with CKD 3, NOVA improved Patient eating and drinking well (3) Emphysema lung: Plan: h/o copd and previously was a minor but not a tobacco user Right lower lobe irregular density previously 9 mm now 18 mm is seen. This will require dedicated CT to follow-up. (4) Paroxysmal atrial fibrillation with RVR: Plan: Paroxysmal atrial fibrillation On anticoagulation with rivaroxaban Patient with rate of 130s, A-fib on admission. Rate control deferred until patient has been adequately volume resuscitated and treated per sepsis protocol Following initiation of fluids and antibiotics rate is downtrending, improving to 1001 10 on reassessment. has not required any rate controlling agents in the past and heart rate improved with treatment of infection (5) Hyponatremia: Plan: Acute on chronic hyponatremia states persistent around the 132 range Plan BPH with LUTS Bladder scan as needed DVT prophylaxis: Anticoagulated CODE STATUS: Full code Admission and Anticipated Discharge Date Admission Date: February 13, 2024 Subjective Patient continues to complain of bilateral shoulder pain and left hip pain. Currently cultures at our hospital but negative. De-escalation due to culture results from [facility] to just ceftriaxone. Discussion with urology regarding the appearance of pyelonephritis on imaging as patient has a unilateral kidney. They feel comfortable with just treating with antibiotics especially in the face of improvement in renal function. Currently pending call out to infectious disease team Physical Exam Physical Exam: pt is awake and alert cardiac is regular lungs are clear but diminished at the bases Shoulders are examined without focal tenderness full range of motion no effusions no erythema Patient examines to be most consistent with less left CVA angle tenderness no particular hip or SI joint tenderness Results & Data Results & Data Vital Signs (Past 12 Hours) Vital Signs Temp Pulse Pulse Resp BP Pulse Ox O2 Del Method 02/15/24 11:25 97.7 F 91 H 18 149/84 H 97 Room Air 02/15/24 11:19 Room Air 02/15/24 08:38 114 H 02/15/24 07:45 97.5 F L 110 H 18 156/87 H 97 Room Air 02/15/24 02:41 98.1 F 86 18 153/79 H 96 Room Air Laboratory Results I personally phoned [facility] where he they informed me that the patient had 4 of 4 blood cultures positive for group G strep Reportedly sensitivities are to ampicillin, cefepime, cefotaxime, ceftriaxone, chloramphenicol, clindamycin, levofloxacin, penicillin, and vancomycin. Urine cultures at their facilities are negative to date Reviewed CBC reviewed chemistry personally spoke to infectious disease consult on two occasions PG Care Time/CCT Total # of Minutes Spent Total Time Spent with Patient: Total time spent is greater than 50% in coordination of care (as documented) at patient's floor/unit and/or counseling patient: Coding Level of Care Code 93309 SUB INP/OBS CARE 3/50MIN Diagnoses Sepsis A41.9 CKD (chronic kidney disease), stage III N18.3 Emphysema lung J43.9 Paroxysmal atrial fibrillation with RVR I48.0 Hyponatremia E87.1
[2024-02-15] MEDS ORDERED: MoRPHine SULFATE 2 MG/ML CARP IV PRN (11:53)
[2024-02-15] MEDS: oxyCODONE HCL IR 5 MG TAB (IMMEDIATE RELEASE) PO PRN ×2 (12:05→18:08)
--- NOTE | 2024-02-15 14:20 | XCELERA ---
[id number]
[2024-02-15] MEDS: cefTRIAXone SODIUM 2,000 MG/50 ML BAG IV SCH (14:42)
--- NOTE | 2024-02-15 16:00 | Infectious Disease Consult ---
Date of Consultation February 15, 2024 Assessment & Plan (1) Sepsis: (2) Streptococcal bacteremia: (3) CKD (chronic kidney disease), stage III: (4) H/O right nephrectomy: Plan 74yo M with h/o BPH with LUTS, CKD III (baseline 1.6-2), right nephrectomy, emphysema who sent to the ED by PCP on 02/12 for concerns of sepsis. Per chart, he returned from [place] this past weekend and then developed pain in his left posterior flank on Sunday (02/09), which slowly spread to his right side of back. He woke the next day with diffuse body aches. He went to the [facility] ED on Sunday night. He got empiric cefepime and noted elevated lactate. He was offered admission vs home and he was discharged, apparently without antibiotics. He was told he had an infection but didnt know what it was. He saw his PCP at follow up and was referred back to ED for c/f sepsis. Here he has been afebrile, vss. WBC 11.88, Cr 1.64. LFT wnl. PCT 5.97. UA with 0-5 WBC. CXR negative. CTAP with moderate bladder wall thickening with adjacent fat stranding, may represent cystitis; mild left perinephric edema/fat stranding which has progressed, could represent an associated pyelonephritis; no calculi; irregular density in RLL 18mm, trace bl pleural effusions. He was started on empiric daptomycin and cefepime. TTE negative for valvular vegetation. Primary team called [facility] and was informed he had 4 of 4 cx positive for Group G strep, sensitive to amp, CTX, vanc, PCN. UCx from there were negative. ID consulted 02/14. Patient with jaramillo-sensitive group G Strep bacteremia. Spoke to primary team and patient doesnt have a clear localizing complaint. Noted trapezius pain, not shoulder joint. Had some left sided ?CVA tenderness. Things to consider are when patient may have received antibiotics at [facility] relative to collection of UCX there and whether his UA at that site was positive. If UCX were done after abx, then may explain why it was negative. And ?whether UA there was positive whereas here, results are altered since he has been on abx. This data unfortunatley may be difficult to collect. He doesnt have any hardware or devices. Since no persistence in bacteremia, will hold off on BELLA. We can consider obtaining panscan CT, however, it would be more informative with IV contrast, though this is limited given his CKD and solitary kidney. Therefore, if no other sources become apparent, then we can complete a 2 week course of abx for likely pyelonephritis and repeat blood cx 1 week after abx completion to ensure resolution of bacteremia. # Group G strep bacteremia # Pyelonephritis on CTAP # CKD III # H/o right nephrectomy - continue CTX 2g IV daily - may consider further imaging with CT panscan though would need IV contrast which is unsafe with his CKD in solitary kidney - plan will be for 2 weeks of abx, can be completed with amoxicillin 1g PO tid (start 02/12 date of neg BCX, end 02/25) - after completion of abx, would repeat BCx in 1 week to ensure clearance - f/u outpatient with PCP ID will follow peripherally, if no other new findings, then will sign off. Antoinette Galvez MD [facility], Division of Infectious Diseases [facility]: [phone] Consultation Information This patient recommendation is based on a telemedicine consult request which was completed asynchronously through chart review and information provided by the primary physician. The patient was not seen or examined today. The evaluation is consultative in nature and all patient care and treatment decisions can either be accepted or rejected by the patient's primary hospital-based treating physician using their own independent medical judgment for their patient. Brick Washer contact information: Please call [facility] Call Center . (Phone Number For Physician Use Only) Time Spent Reviewing Chart: 31+ minutes History of Present Illness Reason for Consultation: Group G strep bacteremia Attending Physician: Link Colon MD History of Present Illness 74yo M with h/o BPH with LUTS, CKD III (baseline 1.6-2), right nephrectomy, emphysema who sent to the ED by PCP on 02/12 for concerns of sepsis. Per chart, he returned from [place] this past weekend and then developed pain in his left posterior flank on Sunday (02/09), which slowly spread to his right side of back. He woke the next day with diffuse body aches. He went to the [facility] ED on Sunday night. He got empiric cefepime and noted elevated lactate. He was offered admission vs home and he was discharged, apparently without antibiotics. He was told he had an infection but didnt know what it was. He saw his PCP at follow up and was referred back to ED for c/f sepsis. Here he has been afebrile, vss. WBC 11.88, Cr 1.64. LFT wnl. PCT 5.97. UA with 0-5 WBC. CXR negative. CTAP with moderate bladder wall thickening with adjacent fat stranding, may represent cystitis; mild left perinephric edema/fat stranding which has progressed, could represent an associated pyelonephritis; no calculi; irregular density in RLL 18mm, trace bl pleural effusions. He was started on empiric daptomycin and cefepime. TTE negative for valvular vegetation. Primary team called [facility] and was informed he had 4 of 4 cx positive for Group G strep, sensitive to amp, CTX, vanc, PCN. UCx from there were negative. ID consulted 02/14. Allergies Allergy/AdvReac Type Severity Reaction Status Date / Time No Known Allergies Allergy Verified 02/13/24 15:07 Home Medications Medication Instructions Recorded Confirmed Type albuterol sulfate 90 mcg/actuation 1 puffs inhalation UD PRN ASTHMA 06/05/19 02/13/24 History aerosol inhaler (Ventolin HFA) allopurinol 300 mg tablet 300 mg PO QAM 06/05/19 02/13/24 History artificial 1 drops ophthalmic (eye) UD PRN 06/05/19 02/13/24 History tears(qwpbzmm-bzdkcjne-mrfpapg) ITCHY/BURNY EYES 0.1 %-0.3 %-0.2 % eye drops (GenTeal Tears Moderate) losartan 50 mg-hydrochlorothiazide 1 tab PO QAM 06/05/19 02/13/24 History 12.5 mg tablet loratadine 10 mg tablet (Claritin) 10 mg PO DAILY PRN SEASONAL 10/01/19 02/13/24 History ALLERGIES acetaminophen 500 mg tablet 1,000 mg PO Q6H PRN Pain 10/07/19 02/13/24 History (Tylenol Extra Strength) rosuvastatin 10 mg tablet 10 mg PO DAILY 12/23/21 02/13/24 History rivaroxaban 15 mg tablet (Xarelto) 15 mg PO DAILY 07/05/22 02/13/24 History semaglutide 7 mg tablet (Rybelsus) 7 mg PO DAILY 03/12/23 02/13/24 History GenTeal Gel 1 applic ophthalmic (eye) UD PRN 02/13/24 02/13/24 History itchy, dry eyes Pataday 1 drp ophthalmic (eye) BID PRN 02/13/24 02/13/24 History itchy, dry eyes Refresh Tears 1 drp ophthalmic (eye) UD PRN Dry 02/13/24 02/13/24 History Eyes Vitamin D3 1 cap PO DAILY 02/13/24 02/13/24 History colchicine 0.6 mg tablet 0.6 mg PO DAILY PRN gout 02/13/24 02/13/24 History famotidine 40 mg tablet 40 mg PO DAILY 02/13/24 02/13/24 History fluticasone 250 mcg-salmeterol 50 1 inh inhalation DAILY 02/13/24 02/13/24 History mcg/dose blistr powdr for inhalation menthol-herbal drugs lozenges 1 hugh mucous membrane UD PRN Other 02/13/24 02/13/24 History (Ricola lozenges) Patient History Medical History Asthma Blind left eye CKD (chronic kidney disease), stage III Diabetes Emphysema lung Gout Hayfever Hypertension Prostate cancer Solitary kidney Tooth infection Surgical History H/O right inguinal hernia repair H/O right nephrectomy History of colonoscopy History of corneal transplant History of endoscopy History of left cataract surgery History of meniscectomy of left knee History of neck surgery Family History Mother , age 80s alzheimers No problems noted. Father , age early 80s CVA No problems noted. Brother , age 65 renal disease No problems noted. Brother No problems noted. Brother Skin cancer Daughter No problems noted. Daughter No problems noted. Son No problems noted. Social History Smoking Status: Never smoker Do You Dip or Chew Tobacco: No; Hx Alcohol Use: Yes Alcohol type: wine Hx Substance Use: No Preferred Language: Faroese Communication Ability: Effective Communication Ability Comment: BLIND LEFT EYE Technologist Infectious Disease Required: No Beliefs That Will Affect Care: None marital status: Current Living Situation: Spouse current occupation: retired salesman heavy equipment other: loss vision left eye Feels Safe at Home: Yes Childhood Exposure to Second-Hand Smoke: No caffeine: Yes (2 cups per day ) during the past year weight has: remained stable Dental Care, Regularly: Yes Physical Activity Frequency: Daily Seatbelt Use: always Sunscreen Use: No Assistive Devices: None Results & Data Vital Signs (Past 12 Hours) Vital Signs Temp Pulse Pulse Resp BP Pulse Ox O2 Del Method 02/15/24 15:42 36.4 C L 77 18 150/88 H 97 Room Air 02/15/24 15:31 120 H 02/15/24 11:25 36.5 C 91 H 18 149/84 H 97 Room Air 02/15/24 11:19 Room Air 02/15/24 08:38 114 H 02/15/24 07:45 36.4 C L 110 H 18 156/87 H 97 Room Air Laboratory Results Labs reviewed. Diagnostic Findings Imaging reviewed.
--- NOTE | 2024-02-16 08:17 | Hospitalist Progress Note ---
Date of Service February 16, 2024 Assessment & Plan (1) Sepsis: Plan: Sepsis, group G strep 4 0f 4 cultures from [facility] are positive. Initially suspected complicated UTI poa, history of solitary kidney s/p nephrectomy as a donation However urine culture from [facility] and urine culture here are negative patient did receive 2 doses of antibiotics at [facility]. Unclear what this was, checked local pharmacies for discharge on antibiotics he did not have any record of him getting prescriptions filled. Attempted to call his primary care office and they are not available after 3 PM on Sunday the Patient has a leukocytosis, elevated Pro-Theodore at 5.9, elevated lactate at 2.2, and evidence of cystitis with pyelonephritis on CT Patient denies any other portals of entry for strep such as any tooth upper airway pharyngitis or skin related problems. Patient continues on 2 g of ceftriaxone daily, per ID if no other sources become apparent, then we can complete a 2 week course of abx for likely pyelonephritis and repeat blood cx 1 week after abx completion to ensure resolution of bacteremia. Echocardiogram without concerns for endocarditis this is a transthoracic test. Difficult to pinpoint how to best evaluate the areas of pain which are his trapezius muscles bilaterally and his left CVA area CT scan of chest abdomen pelvis did not show any abnormalities in these areas. With his the exception of the left pyelonephritis causing CVA tenderness. Will attempt to use Voltaren gel to minimize any systemic effects of nonsteroidals and use lidocaine patch to the CVA area (2) CKD (chronic kidney disease), stage III: Plan: NOVA with CKD 3, NOVA improved Patient eating and drinking well (3) Emphysema lung: Plan: h/o copd and previously was a minor but not a tobacco user Right lower lobe irregular density previously 9 mm now 18 mm is seen. Rapid expansion has been seen we will continue to follow. May warrant earlier pulmonary consultation rather than later (4) Paroxysmal atrial fibrillation with RVR: Plan: Paroxysmal atrial fibrillation On anticoagulation with rivaroxaban Patient with rate of 130s, A-fib on admission. Rate control deferred until patient has been adequately volume resuscitated and treated per sepsis protocol Following initiation of fluids and antibiotics rate is downtrending, improving to 1001 10 on reassessment. has not required any rate controlling agents in the past and heart rate improved with treatment of infection (5) Hyponatremia: Plan: Acute on chronic hyponatremia states persistent around the 132 range Plan BPH with LUTS Bladder scan as needed DVT prophylaxis: Anticoagulated CODE STATUS: Full code Admission and Anticipated Discharge Date Admission Date: February 13, 2024 Subjective Patient still has bilateral shoulder pain and left CVA angle pain. No additional culture results have resulted to alter antibiotic therapy. Patient is a pain relief with oral pain medications. CT scan of chest abdomen pelvis did not show any new signs or symptoms however shows persistent pyelonephritis renal cyst. Was disclosed to the patient there is also a change in a right lower lobe lung lesion that needs to be followed up upon Physical Exam Physical Exam: The patient appeared well nourished and normally developed. Vital signs as documented. Head exam is normocephalic atraumatic Neck is without JVD, thyromegaly, or carotid bruits. Lungs are clear to auscultation, no focal loss of breath sounds Cardiac exam, Rhythm is regular.. No murmurs, rubs or gallops. Abdominal exam reveals normal bowel sounds, soft Left CVA angle tenderness. Reproducible pain to trapezius muscle however no overt knots or masses or abscesses suspected. Results & Data Results & Data Vital Signs (Past 12 Hours) Vital Signs Temp Pulse Pulse Resp BP Pulse Ox O2 Del Method 02/16/24 03:30 97.9 F 94 H 19 158/99 H 94 Room Air 02/15/24 23:05 98.1 F 94 H 17 155/78 H 95 Room Air 02/15/24 23:00 82 02/15/24 20:40 Room Air Laboratory Results Reviewed CBC reviewed chemistry PG Care Time/CCT Total # of Minutes Spent Total Time Spent with Patient: Total time spent is greater than 50% in coordination of care (as documented) at patient's floor/unit and/or counseling patient: Coding Level of Care Code 61233 SUB INP/OBS CARE 2/35MIN Diagnoses Sepsis A41.9 CKD (chronic kidney disease), stage III N18.3 Emphysema lung J43.9 Paroxysmal atrial fibrillation with RVR I48.0 Hyponatremia E87.1
[2024-02-16 08:34] LABS: Basophils # (auto) 0.03 K/uL (0.00-0.20); Basophils % (auto) 0.4 %; Eosinophils # (auto) 0.04 K/uL (0.00-0.50); Eosinophils % (auto) 0.5 %; Hematocrit (blood only) 40.8 % (42.0-52.0); Immature Granulocytes # (auto) 0.03 K/uL (0.01-0.20); Immature Granulocytes % (auto) 0.4 %; Lymphocytes # (auto) 1.26 K/uL (1.20-3.40); Lymphocytes % (auto) 16.1 %; Mean Corpuscular Hemoglobin 31.1 pg (25.0-34.0); Mean Corpuscular Hgb Conc 34.3 g/dL (32.0-36.0); Mean Corpuscular Volume 90.7 fL (80.0-100.0); Mean Platelet Volume 11.5 fL (9.4-12.4); Monocytes % (auto) 10.2 %; Neutrophils # (auto) 5.66 K/uL (1.40-6.50); Neutrophils % (auto) 72.4 %; Platelet Count 211 K/uL (130-400); RDW Coefficient of Variation 13.4 % (11.5-14.5); RDW Standard Deviation 45.1 fL (36.4-46.3); White Blood Count 7.82 K/ul (4.8-10.8)
[2024-02-16 08:43] LABS: BUN Creatinine Ratio 13.5 (10-20); C Reactive Protein 9.22 mg/dl (0-0.5); Calcium 9.7 mg/dl (8.6-10.3); Creatinine Clr Calc Pharmacy 42.2 ml/min; Est GFR (African American) 49.6 ml/min; Est GFR (Non-African American) 42.8 ml/min; Potassium 3.6 mmol/L (3.5-5.1)
--- NOTE | 2024-02-16 11:41 | CT Scan Report ---
CT chest diagnostic wo con CT DOSE: HISTORY: bacteremia with b/l shoulder pain TECHNIQUE: Multiaxial CT images of the chest were performed without contrast. A dose lowering techni que was utilized adhering to the principles of ALARA. COMPARISON: Chest CT 10/09/2019. FINDINGS: No pneumothorax. Mild emphysema. The central airways are patent. There are few scattered pu nctate calcified granulomas. Bilateral lower lobe linear densities are nonspecific but favor subsegme ntal atelectasis or scarring. A superimposed pneumonitis would be difficult to exclude. There are tra ce bilateral pleural effusions and a small pericardial effusion. There is a 17 mm irregular nodule wi thin the right lower lobe abutting the major fissure on image 207. This previously measured 9 mm. Thi s is highly suspicious for a primary bronchogenic malignancy given the appearance and increase in siz e. No acute fractures identified. Normal thyroid gland. Abdominal structures will be reported on the same day abdomen and pelvis CT. Normal esophagus. Mild calcified plaque within the normal caliber tho racic aorta. There are severe coronary artery calcifications noted. The heart is normal in size. Subc entimeter mediastinal and bilateral hilar lymph nodes do not meet CT criteria for pathologic involvem ent. IMPRESSION: 1. Interval increase in size in the 17 mm irregular nodule within the right lower lobe. Therefore, th is is highly suspicious for a primary bronchogenic malignancy. Pulmonary consultation recommended. 2. Emphysema. 3. Trace bilateral pleural effusions and a small pericardial effusion, unchanged. 4. Bilateral lower lobe linear densities are nonspecific but favor subsegmental atelectasis or scarri ng. A superimposed pneumonitis would be difficult to exclude. ACT 112: Positive. There are findings on this exam that require communication between the performing entity and the patient following Patient Test Result Information Act ([place] Act 112) guidelines. Electronically signed by: Jamey Ambrosio M.D. 02/16/2024 11:39 AM
--- NOTE | 2024-02-16 11:47 | CT Scan Report ---
ABDOMEN AND PELVIS CT WITH ORAL CONTRAST CT DOSE: 1860.37 mGy.cm HISTORY: solitary kidney strep bacteremia TECHNIQUE: Multiaxial CT images of the abdomen and pelvis were performed following the use of oral co ntrast. A dose lowering technique was utilized adhering to the principles of ALARA. COMPARISON STUDY: Abdomen and pelvis CT 02/13/2024. FINDINGS: The lung bases will be reported on the same day chest CT including the irregular 17 mm nodu le within the right lower lobe. Trace bilateral pleural effusions and a small pericardial effusion, u nchanged. No pneumoperitoneum. No pneumatosis. No acute fractures. There is a tiny hiatus hernia. The re are 2 subcentimeter hypodense lesions within the liver. These are technically too small to charact erize but statistically represent cysts. The spleen is mildly enlarged measuring 14 cm in length. Thi s is unchanged. There is a 19 mm hypodense lesion within the spleen posteriorly. This is also indeter minate but favors a benign lesion. The unenhanced gallbladder, pancreas, and adrenal glands unremarka ble. The right kidney is absent. There is compensatory hypertrophy of the left kidney which contains multiple hypodense lesions. These likely represent cysts. Dominant cyst within the lower pole contain s a punctate focus of calcification and measures 6.8 cm. These suspected left renal cysts are similar to the prior study. No left renal or ureteral stones. No hydronephrosis. There is persistent mild le ft perinephric edema/fat stranding, unchanged. There is a left retroaortic renal vein. Calcified plaq ue within the normal caliber abdominal aorta. No retroperitoneal or pelvic lymphadenopathy. No pelvic free fluid. There are small posterior bladder diverticula. There is moderate bladder wall thickening with adjacent fat stranding. The prostate gland appears surgically absent. There is a small fat-cont aining left inguinal hernia. Suboptimal evaluation for bowel pathology due to the lack of intravenous and oral contrast. However, there is no definite bowel wall thickening or obstruction. Normal append ix. Colonic diverticulosis. No evidence for acute diverticulitis. IMPRESSION: 1. Moderate bladder wall thickening with adjacent fat stranding, unchanged. Recommend correlation wit h urinalysis. 2. Mild left perinephric edema/fat stranding which is also unchanged. This could represent an associa bruce pyelonephritis. 3. Absent right kidney. 4. No renal or ureteral calculi. No hydronephrosis. 5. No bowel wall thickening or obstruction. 6. There is a partially visualized focal irregular density within the right lower which is better ebony reciated on the same day chest CT. 7. Trace bilateral pleural effusions and a small pericardial effusion. 8. Stable splenomegaly. 9. Additional findings as described above. ACT 112: Negative or not required by law. Electronically signed by: Jamey Ambrosio M.D. 02/16/2024 11:44 AM
[2024-02-16] MEDS: LIDOCAINE 5% 1 PATCH TD STA (16:43)
[2024-02-16] MEDS: DICLOFENAC SOD 1% GEL 100 GM TUBE EXT SCH (20:42)
[2024-02-17] MEDS: LIDOCAINE 5% 1 PATCH TD SCH (09:01)
--- NOTE | 2024-02-17 13:59 | Discharge Summary ---
Discharge Summary Date of Service February 17, 2024 Notes For Next Care Provider Patient presented after being discharged from [facility] on finding out blood cultures were positive for gram-positive cocci in chains. Later identified the group G strep. Patient did well on ceftriaxone per sensitivities from [facility] and discharged on high-dose amoxicillin 1000 3 times daily to complete a 14-day course total as per infectious disease recommendations. Blood cultures 1 week after completion of antibiotics Somatic complaints of shoulder and flank pain not corroborated by any deep tissue infection on [address] scans. Patient did have improvement with Voltaren gel and lidocaine patches. Patient is unilateral kidney does have significant cysts in place will likely need continued surveillance and follow-up Patient was informed of incidentally noted right lower lobe pulmonary lesion which will need short-term close follow-up recommend at least no longer than [address] of chest. Medication Changes From Visit Discharged on Voltaren, Lidoderm, 20 pills of oxycodone 5, and Amoxil 1000 3 times daily for 10 days to complete a 14-day course of total antibiotics. Admission HPI Per Admitting Provider Clement is a 74-year-old male with a past medical history of emphysema, BPH with LUTS, [id number] baseline creatinine approximately 1.662.0, history of right nephrectomy who was seen in [facility] yesterday and had blood work performed for urinary symptoms and fevers, and after dc saw his PCP for followup was recommended to proceed to the ER for suspected sepsis. Leukocytosis of 11.8, febrile, tachycardic with A-fib/RVR. Creatinine is near baseline at 1.71. Lactate 2.2. Procalcitonin elevated at 5.9. UA is with ketones/blood but without leukocyte esterase/bacteria. CT of the abdomen/pelvis show bladder wall thickening with fat stranding suspicious for cystitis, left perinephric fat stranding progressed from prior suspicious for pyelonephritis, surgically absent right kidney, right lower lobe irregular density at 18 mm previously 9 mm and for which a follow-up chest CT to exclude bronchogenic malignancy is recommended, trace bilateral pleural effusions, and small pericardial effusion seen. Afib RVR on admit. +L flank pain. Got 2 doses of Abx at [facility], records pending an dunclear what was given cefepime ordered met IBW guidelines for fluids due to pleural effusions Clement is seen at the bedside ith his present. He returned to the area from [facility] this past weekend. Developed a pain in his LEFT posterior flank on Sunday. Jabbing intermittent pain which seemed to slowly spread up the R side of the back. He took some colchecine which he has for gout and did have a large steak before starting sx. Took 3x total, but then his whole body started to ache after. Hot showers didn't help. Hot pad did not help. Went to bed at 4am, woke up still with diffuse body aches. Next morning tried to call for massage therapy. Had cupping and deep tissue massage which did seem to help a lot, but still had some pain in hi L flank. Made an appointment for today with PCP. Went to the ER Sunday night prior to that to get labs, got urine samples. Got empiric cefepime. Lactate was elevated. Was offered admission vs return home if feeling well. was dced without an antibiotic. Was told he had an infection, but id not know what it was at the time. At PCP followup was reffered bck to the ER for suspected sepsis. Subsequently cultures positive for GPC in UC with peciation pending, preliminary group g strep. +fevers, chills overnight. 102*F No history of heart attacks. Hx of afib on xarelto, not on rate control No history of lung disease hx of soliday kidney due to donating one to his brother Has seen nodules on lung xrays in the past, thought these were stable and has not seen pump or had a dedicated CT Does not think his urination has changed very much, has been darker than normal however Medical History: Reviewed Medications: Reviewed Surgical History: Reviewed Family history: Reviewed Allergies: Reviewed Social History: Reviewed Code Status: FUll Principal Dx & Hospital Course #1 = Principal Diagnosis (1) Sepsis: Sepsis, group G strep 4 0f 4 cultures from [facility] are positive. 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 Unclear what this was, checked local pharmacies for discharge on antibiotics he did not have any record of him getting prescriptions filled. Patient received 4 doses of antibiotics finishing out with 2 g of ceftriaxone daily, per ID without identification of other sources, then we can complete a 2 week course of abx for likely pyelonephritis and repeat blood cx 1 week after abx completion to ensure resolution of bacteremia. Echocardiogram without concerns for endocarditis this is a transthoracic test. (2) CKD (chronic kidney disease), stage III: NOVA with CKD 3, NOVA improved Patient eating and drinking well (3) Emphysema lung: h/o copd and previously was a minor but not a tobacco user Right lower lobe irregular density previously 9 mm now 18 mm is seen. Recommend outpatient CT surveillance and consideration of pulmonary referral for possible bronchoscopic exploration (4) Paroxysmal atrial fibrillation with RVR: Paroxysmal atrial fibrillation On anticoagulation with rivaroxaban Patient with rate of 130s, A-fib on admission. Rate control deferred until patient has been adequately volume resuscitated and treated per sepsis protocol Following initiation of fluids and antibiotics rate is downtrending, improving to 1001 10 on reassessment. has not required any rate controlling agents in the past and heart rate improved with treatment of infection (5) Hyponatremia: Acute on chronic hyponatremia states persistent around the 132 range Plan CODE STATUS: Full code Discharge Exam Awake alert appropriate. Patient is weaning shoulder pain and flank pain. Improved with Voltaren and Lidoderm patches. Card exam is regular lungs are clear without wheeze or crackles Updated Medication List Medication Instructions Recorded Confirmed Type albuterol sulfate 90 mcg/actuation 1 puffs inhalation UD PRN ASTHMA 06/05/19 02/13/24 History aerosol inhaler (Ventolin HFA) allopurinol 300 mg tablet 300 mg PO QAM 06/05/19 02/13/24 History artificial 1 drops ophthalmic (eye) UD PRN 06/05/19 02/13/24 History tears(lodkjyo-fwubfebe-ayudzqy) ITCHY/BURNY EYES 0.1 %-0.3 %-0.2 % eye drops (GenTeal Tears Moderate) losartan 50 mg-hydrochlorothiazide 1 tab PO QAM 06/05/19 02/13/24 History 12.5 mg tablet loratadine 10 mg tablet (Claritin) 10 mg PO DAILY PRN SEASONAL 10/01/19 02/13/24 History ALLERGIES acetaminophen 500 mg tablet 1,000 mg PO Q6H PRN Pain 10/07/19 02/13/24 History (Tylenol Extra Strength) rosuvastatin 10 mg tablet 10 mg PO DAILY 12/23/21 02/13/24 History rivaroxaban 15 mg tablet (Xarelto) 15 mg PO DAILY 07/05/22 02/13/24 History semaglutide 7 mg tablet (Rybelsus) 7 mg PO DAILY 03/12/23 02/13/24 History GenTeal Gel 1 applic ophthalmic (eye) UD PRN 02/13/24 02/13/24 History itchy, dry eyes Pataday 1 drp ophthalmic (eye) BID PRN 02/13/24 02/13/24 History itchy, dry eyes Refresh Tears 1 drp ophthalmic (eye) UD PRN Dry 02/13/24 02/13/24 History Eyes Vitamin D3 1 cap PO DAILY 02/13/24 02/13/24 History colchicine 0.6 mg tablet 0.6 mg PO DAILY PRN gout 02/13/24 02/13/24 History famotidine 40 mg tablet 40 mg PO DAILY 02/13/24 02/13/24 History fluticasone 250 mcg-salmeterol 50 1 inh inhalation DAILY 02/13/24 02/13/24 History mcg/dose blistr powdr for inhalation menthol-herbal drugs lozenges 1 hugh mucous membrane UD PRN Other 02/13/24 02/13/24 History (Ricola lozenges) acetaminophen 325 mg tablet 650 mg (2 x 325 mg) PO Q4H PRN 02/17/24 Rx fever or pain #60 tabs amoxicillin 500 mg capsule 1,000 mg (2 x 500 mg) PO TID #60 02/17/24 Rx caps diclofenac sodium 1 % topical gel 2 g EXT BID #100 grams 02/17/24 Rx (Voltaren Arthritis Pain) lidocaine 5 % topical patch See Rx Instructions topical 02/17/24 Rx .COMPLEX #15 ea oxycodone 5 mg tablet 5 - 10 mg (1 - 2 x 5 mg) PO Q6H 02/17/24 Rx PRN pain #20 tabs Hospital Stay Data Consultations 02/13/24 14:53 ED Decision to Admit Stat 02/15/24 13:47 Consult Infectious Diseases Routine Diagnostic Imagining Performed 02/13/24 12:21 CT Abd and Pelvis [CT abd pelvis wo con] Stat 02/16/24 08:15 CT Abd and Pelvis [CT abd pelvis oral con only] Routine CT chest diagnostic wo con Routine Pending Results Patient Have Any Pending Studies at Discharge: No Discharge Instructions Given to Patient (Per Discharging Provider) use Voltaren gel to shoulder twice a day until you have no further shoulder pain use Lidoderm patch to flank if pain complete a course of high dose amoxicillin see your family doctor in a week Total Time Total Time Spent Total Time Spent (In Minutes): It required greater than 30 minutes to prepare this patient for discharge. Coding Level of Care Code 22805 INP/OBS DISCH >30 MIN Diagnoses Sepsis A41.9 CKD (chronic kidney disease), stage III N18.3 Emphysema lung J43.9 Paroxysmal atrial fibrillation with RVR I48.0 Hyponatremia E87.1
[2024-02-19 14:17] LABS: HBSAG NON-REACTIVE (NON-REACTIVE); Hepatitis A Antibody IgM NON-REACTIVE (NON-REACTIVE); Hepatitis B Core Antibody IgM NON-REACTIVE (NON-REACTIVE)
== END 2024-02-17 15:37 | disposition home or self-care (01) | DRG 872 ==
LOC: ED 12:14 → EDINP 14:33 → SUATTDRO 14:33 → EDINP 17:09 → 4W 21:51